=== PATIENT | male | born 1955 | race Caucasian/White ===

== ENCOUNTER 2016-04-19 10:22 | Inpatient (IN) | payer BC ==
[2016-04-19] MEDS ORDERED: ASPIRIN 81 MG CHEW PO STA (10:38)
[2016-04-19] MEDS ORDERED: NITROGLYCERIN OINT 1 INCH/GM PACKET TOPICAL STA (10:38)
--- NOTE | 2016-04-19 10:41 | ED ---
General Adult HPI - General Chief complaint: Chest Pain Stated complaint: CHEST PAIN Time Seen by Provider: 04/19/16 10:32 Source: patient Mode of arrival: wheelchair Limitations: no limitations - Related Data Home Medications Medication Instructions Recorded Confirmed Allopurinol [Zyloprim] 100 mg PO DAILY 04/19/16 04/19/16 Atorvastatin [Lipitor] 10 mg PO DAILY 04/19/16 04/19/16 Colchicine 0.6 mg PO DAILY PRN 04/19/16 04/19/16 Hydrochlorothiazide [Hydrodiuril] 25 mg PO DAILY 04/19/16 04/19/16 Insulin Aspart [NovoLOG] 20 unit SQ TID-W/MEALS 04/19/16 04/19/16 Insulin Glargine,Hum.rec.anlog 50 unit SQ BID 04/19/16 04/19/16 [Lantus Solostar] Metoprolol Succinate (ER) [Toprol 50 mg PO DAILY 04/19/16 04/19/16 Xl] amLODIPine BESYLATE/BENAZEPRIL 1 cap PO DAILY 04/19/16 04/19/16 [amLODIPine BESYLATE/BENAZEPRIL 5-40 mg] oxyCODONE-APAP 10-325MG [Percocet 1 tab PO BID 04/19/16 04/19/16 10-325 mg] Allergies Allergy/AdvReac Type Severity Reaction Status Date / Time No Known Allergies Allergy Unverified 04/19/16 10:53 Review of Systems ROS Statement: Those systems with pertinent positive or pertinent negative responses have been documented in the HPI. ROS Other: All systems not noted in ROS Statement are negative. Past Medical History Past Medical History: Diabetes Mellitus, Hyperlipidemia, Hypertension History of Any Multi-Drug Resistant Organisms: None Reported Past Surgical History: Orthopedic Surgery Past Psychological History: No Psychological Hx Reported Smoking Status: Never smoker Past Alcohol Use History: None Reported Past Drug Use History: None Reported General Exam Limitations: no limitations Course Vital Signs 04/19/16 04/19/16 04/19/16 10:37 11:10 11:45 Temperature 97.2 F L Pulse Rate 76 67 66 Respiratory 16 18 20 Rate Blood Pressure 168/108 181/90 161/84 O2 Sat by Pulse 93 L 99 99 Oximetry - Reevaluation(s) Reevaluation #1: 04/19/16 10:47 Previous EKG dated 04/12/2009 reviewed. 04/19/16 11:13 Dr. Levin has reviewed the EKGs and is coming to evaluate the patient. EKG Findings - EKG Comments: EKG Findings:: Normal sinus rhythm 75. MN 160. QRS 94. QT 406. QTc 453. Normal axis. Septal Q waves with mild ST change. Medical Decision Making - Medical Decision Making Patient does have elevated troponin. Patient was reevaluated and remained symptom-free. Patient was seen emergency Department by Dr. Levin and will be taken to the Air Breaker Operator. IV heparin has been started. Admission orders written. Case was also discussed in detail with Dr. low, who will admit for Dr. Barrios. - Lab Data Result diagrams: 04/19/16 11:00 04/19/16 11:00 Lab Results 04/19/16 04/19/16 04/19/16 Range/Units 11:00 11:00 11:00 WBC 7.7 (3.8-10.6) k/uL RBC 5.56 (4.30-5.90) m/uL Hgb 17.8 H (13.0-17.5) gm/dL Hct 53.9 H (39.0-53.0) % MCV 97.0 (80.0-100.0) fL MCH 31.9 (25.0-35.0) pg MCHC 32.9 (31.0-37.0) g/dL RDW 13.5 (11.5-15.5) % Plt Count 220 (150-450) k/uL Neutrophils % 68 % Lymphocytes % 20 % Monocytes % 8 % Eosinophils % 2 % Basophils % 1 % Neutrophils # 5.2 (1.3-7.7) k/uL Lymphocytes # 1.5 (1.0-4.8) k/uL Monocytes # 0.6 (0-1.0) k/uL Eosinophils # 0.1 (0-0.7) k/uL Basophils # 0.1 (0-0.2) k/uL PT (9.0-12.0) sec INR (<1.1) APTT (22.0-30.0) sec D-Dimer (<0.60) mg/L FEU Sodium 139 (137-145) mmol/L Potassium 5.0 (3.5-5.1) mmol/L Chloride 103 (98-107) mmol/L Carbon Dioxide 25 (22-30) mmol/L Anion Gap 11 mmol/L BUN 32 H (9-20) mg/dL Creatinine 1.43 H (0.66-1.25) mg/dL Est GFR (MDRD) Af Amer >60 (>60 ml/min/1.73 sqM) Est GFR (MDRD) Non-Af 51 (>60 ml/min/1.73 sqM) Glucose 250 H (74-99) mg/dL Calcium 9.8 (8.4-10.2) mg/dL Magnesium 1.9 (1.6-2.3) mg/dL Total Bilirubin 0.6 (0.2-1.3) mg/dL AST 42 (17-59) U/L ALT 60 (21-72) U/L Alkaline Phosphatase 119 (38-126) U/L Total Creatine Kinase 230 H (55-170) U/L CK-MB (CK-2) 5.9 H* (0.0-2.4) ng/mL CK-MB (CK-2) Rel Index 2.6 Troponin I 2.110 H* (0.000-0.034) ng/mL Total Protein 7.6 (6.3-8.2) g/dL Albumin 4.0 (3.5-5.0) g/dL 04/19/16 Range/Units 11:00 WBC (3.8-10.6) k/uL RBC (4.30-5.90) m/uL Hgb (13.0-17.5) gm/dL Hct (39.0-53.0) % MCV (80.0-100.0) fL MCH (25.0-35.0) pg MCHC (31.0-37.0) g/dL RDW (11.5-15.5) % Plt Count (150-450) k/uL Neutrophils % % Lymphocytes % % Monocytes % % Eosinophils % % Basophils % % Neutrophils # (1.3-7.7) k/uL Lymphocytes # (1.0-4.8) k/uL Monocytes # (0-1.0) k/uL Eosinophils # (0-0.7) k/uL Basophils # (0-0.2) k/uL PT 10.3 (9.0-12.0) sec INR 1.0 (<1.1) APTT 23.6 (22.0-30.0) sec D-Dimer 0.35 (<0.60) mg/L FEU Sodium (137-145) mmol/L Potassium (3.5-5.1) mmol/L Chloride (98-107) mmol/L Carbon Dioxide (22-30) mmol/L Anion Gap mmol/L BUN (9-20) mg/dL Creatinine (0.66-1.25) mg/dL Est GFR (MDRD) Af Amer (>60 ml/min/1.73 sqM) Est GFR (MDRD) Non-Af (>60 ml/min/1.73 sqM) Glucose (74-99) mg/dL Calcium (8.4-10.2) mg/dL Magnesium (1.6-2.3) mg/dL Total Bilirubin (0.2-1.3) mg/dL AST (17-59) U/L ALT (21-72) U/L Alkaline Phosphatase (38-126) U/L Total Creatine Kinase (55-170) U/L CK-MB (CK-2) (0.0-2.4) ng/mL CK-MB (CK-2) Rel Index Troponin I (0.000-0.034) ng/mL Total Protein (6.3-8.2) g/dL Albumin (3.5-5.0) g/dL - Radiology Data Radiology results: image reviewed (Chest x-ray shows borderline cardiomegaly. No acute process.) Critical Care Time Critical Care Time: Yes Total Critical Care Time: 34 Disposition Clinical Impression: NSTEMI (non-ST elevated myocardial infarction) Disposition: ADMITTED IP TO THIS [facility] Condition: Serious
[2016-04-19 11:17] LABS: Basophils # (A) 0.1 k/uL (0-0.2); Basophils % (A) 1 %; CH 33.1; CHCM 34.3; Eosinophils # (A) 0.1 k/uL (0-0.7); Eosinophils % (A) 2 %; HCT 53.9 % (39.0-53.0); HDW 2.37; HGB 17.8 gm/dL (13.0-17.5); Luc # (Auto) 0.12; Luc % (Auto) 2; Lymphocytes # (A) 1.5 k/uL (1.0-4.8); Lymphocytes % (A) 20 %; MCH 31.9 pg (25.0-35.0); MCHC 32.9 g/dL (31.0-37.0); Mean Platelet Volume 7.7; Monocytes # (A) 0.6 k/uL (0-1.0); Monocytes % (A) 8 %; Neutrophils # (A) 5.2 k/uL (1.3-7.7); Neutrophils % (A) 68 %; RBC 5.56 m/uL (4.30-5.90); RDW 13.5 % (11.5-15.5); WBC 7.7 k/uL (3.8-10.6); WBC (Perox) 8.18
[2016-04-19 11:30] LABS: ALT 60 U/L (21-72); AST 42 U/L (17-59); Alkaline Phosphatase 119 U/L (38-126); Anion Gap 11 mmol/L; Blood Urea Nitrogen 32 mg/dL (9-20); Calcium 9.8 mg/dL (8.4-10.2); Carbon Dioxide 25 mmol/L (22-30); Chloride 103 mmol/L (98-107); Glucose 250 mg/dL (74-99); Magnesium 1.9 mg/dL (1.6-2.3); Non-African American GFR(MDRD) 51 (>60 ml/min/1.73 sqM); Sodium 139 mmol/L (137-145); Total Bilirubin 0.6 mg/dL (0.2-1.3); Total Protein 7.6 g/dL (6.3-8.2)
[2016-04-19 11:32] LABS: Partial Thromboplastin Time 23.6 sec (22.0-30.0); Prothrombin Time 10.3 sec (9.0-12.0)
[2016-04-19] MEDS ORDERED: HEPARIN SODIUM,PORCINE 5,000 UNIT/ML 1 ML VIAL IV ONE (11:39)
[2016-04-19] MEDS ORDERED: HEPARIN SODIUM,PORCINE 5,000 UNIT/ML 1 ML VIAL IV PRN (11:39)
[2016-04-19] MEDS ORDERED: HEPARIN SODIUM,PORCINE/D5W PMX 25,000 UNIT in DEXTROSE/WATER 1 500ML.BAG IV SCH (11:45)
--- NOTE | 2016-04-19 11:50 | XR ---
EXAMINATION TYPE: XR chest 1V portable DATE OF EXAM: 04/19/2016 11:45 AM HISTORY: Epigastric pain. REFERENCE: Previous study dated 04/11/2009. FINDINGS: The lungs are overinflated. Heart size is upper limits of normal. The lungs are clear. Pleu ral spaces are clear. IMPRESSION: 1. COPD. 2. BORDERLINE CARDIOMEGALY.
[2016-04-19 12:08] LABS: Creatine Kinase MB 5.9 ng/mL (0.0-2.4); Troponin I 2.11 ng/mL (0.000-0.034)
[2016-04-19] MEDS ORDERED: NITROGLYCERIN SL TABS 0.4 MG TAB SUBLINGUAL PRN ×2 (12:41→14:13)
[2016-04-19] MEDS ORDERED: IV FLUID CONTINUATION 1,000 ML IV ONE (12:50)
[2016-04-19] MEDS ORDERED: HEPARIN SODIUM 1,000 UNIT/ML VIAL ONE (12:56)
[2016-04-19] MEDS ORDERED: VERAPAMIL 2.5 MG/ML 2 ML AMP ONE (12:56)
[2016-04-19] MEDS ORDERED: SODIUM CHLORIDE 0.9% (PF) 10 ML VIAL ONE ×2 (12:56→13:36)
[2016-04-19] MEDS ORDERED: MIDAZOLAM 2 MG/2 ML VIAL ONE ×2 (12:56→13:42)
[2016-04-19] MEDS ORDERED: MIDAZOLAM 2 MG/2 ML VIAL IV ONE ×2 (13:14→13:43)
[2016-04-19] MEDS ORDERED: LIDOCAINE 2% INJ 20 MG/ML SQ ONE (13:16)
[2016-04-19] MEDS ORDERED: BIVALIRUDIN BOLUS 250 MG/50 ML IV ONE (13:35)
[2016-04-19] MEDS ORDERED: niCARdipine 25 MG/10 ML VIAL ONE (13:36)
[2016-04-19] MEDS ORDERED: BIVALIRUDIN 250 MG in SODIUM CHLORIDE 0.9% 50 ML IV ONE ×2 (13:37→13:56)
[2016-04-19] MEDS: NITROGLYCERIN 1000MCG/10ML SYRINGE INTRACORON ONE ×2 (13:44→13:52)
[2016-04-19] MEDS ORDERED: HYDROmorphone 2 MG/ML 1 ML SYRINGE ONE (14:05)
[2016-04-19] MEDS ORDERED: TICAGRELOR 90 MG TAB ONE (14:05)
[2016-04-19] MEDS ORDERED: HYDROmorphone 2 MG/ML 1 ML SYRINGE IV ONE (14:07)
[2016-04-19] MEDS ORDERED: TICAGRELOR 90 MG TAB PO ONE (14:09)
[2016-04-19] MEDS ORDERED: hydrALAZINE HCL 20 MG/ML 1 ML VIAL ONE (14:11)
[2016-04-19] MEDS ORDERED: RX INFO: IV CONTRAST WAS GIVEN 1 EACH MISC MISCELLANE PRN (14:13)
[2016-04-19] MEDS ORDERED: ZOLPIDEM 5 MG TAB PO PRN (14:13)
[2016-04-19] MEDS ORDERED: MAG HYDROX/AL HYDROX/SIMETH 30 ML CUP PO PRN (14:13)
[2016-04-19] MEDS ORDERED: hydrALAZINE HCL 20 MG/ML 1 ML VIAL IV ONE (14:14)
[2016-04-19] MEDS ORDERED: IODIXANOL 320 MG/ML 100 ML INTRAARTER ONE (14:21)
[2016-04-19 17:21] LABS: Glucose,Whole Blood 247 mg/dL (75-99)
[2016-04-19] MEDS ORDERED: NITROGLYCERIN OINT 1 INCH/GM PACKET TOPICAL SCH (18:00)
[2016-04-19 18:49] LABS: Creatine Kinase MB 4.3 ng/mL (0.0-2.4); Troponin I 4.87 ng/mL (0.000-0.034)
[2016-04-19] MEDS ORDERED: HYDROmorphone 1 MG/ML 1 ML SYRINGE IVP PRN (19:00)
[2016-04-19] MEDS ORDERED: oxyCODONE-APAP 10-325MG 1 EACH TAB PO PRN (19:17)
[2016-04-19 20:02] LABS: Hemoglobin A1C 9.9 % (4.2-6.1)
[2016-04-19] MEDS: INSULIN GLARGINE 100 UNIT/ML 10 ML VIAL SQ SCH (20:22)
[2016-04-19] MEDS: ATORVASTATIN 80 MG TAB PO SCH (20:23)
[2016-04-19] MEDS: LISINOPRIL 20 MG TAB PO SCH (20:24)
[2016-04-19] MEDS: amLODIPine 5 MG TAB PO SCH (20:24)
[2016-04-19] MEDS: METOPROLOL TARTRATE 25 MG TAB PO SCH (20:30)
[2016-04-19] MEDS ORDERED: oxyCODONE-APAP 10-325MG 1 EACH TAB PO SCH (21:00)
[2016-04-19] MEDS ORDERED: METOPROLOL SUCCINATE (ER) 25 MG TAB.ER.24H PO SCH (21:00)
[2016-04-19 21:25] LABS: Glucose,Whole Blood 262 mg/dL (75-99)
[2016-04-19] MEDS: INSULIN LISPRO (humaLOG) 300 UNIT/3 ML VIAL SQ SCH ×2 (21:56→21:57)
[2016-04-19 23:08] LABS: Troponin I 4.36 ng/mL (0.000-0.034)
--- NOTE | 2016-04-20 01:04 | P.CRDCN ---
History of Present Illness Consult date: 04/19/16 Chief complaint: Chest discomfort History of present illness: This is a pleasant 60-year-old gentleman with a past medical history significant for obesity, hypertension, dyslipidemia, and diabetes, presented to the hospital complaining of chest discomfort. He was in his usual state of health until about a week ago when he started experiencing intermittent episodes of chest discomfort as a pressure across the chest without any associated symptoms of shortness of breath, dizziness or lightheadedness, nausea or vomiting, or sweating. He clearly states that the discomfort is worse with exertion and better with a resting. The patient is not aware of any prior history of coronary artery disease and never seen a bi tester in the past. He has extensive past medical history as described above. The EKG showed sinus rhythm with ST changes consistent with ischemia in the anteroseptal leads. In view of that I recommended proceeding with a heart catheterization and possible percutaneous coronary intervention Past Medical History Past Medical History: Diabetes Mellitus, Hyperlipidemia, Hypertension, Sleep Apnea/CPAP/BIPAP History of Any Multi-Drug Resistant Organisms: None Reported Past Surgical History: Orthopedic Surgery Past Psychological History: No Psychological Hx Reported Smoking Status: Never smoker Past Alcohol Use History: None Reported Past Drug Use History: None Reported - Past Family History Father Family Medical History: Coronary Artery Disease (CAD), Diabetes Mellitus Mother Family Medical History: Coronary Artery Disease (CAD) Medications and Allergies Home Medications Medication Instructions Recorded Confirmed Type Allopurinol [Zyloprim] 100 mg PO DAILY 04/19/16 04/19/16 History Atorvastatin [Lipitor] 10 mg PO DAILY 04/19/16 04/19/16 History Colchicine 0.6 mg PO DAILY PRN 04/19/16 04/19/16 History Hydrochlorothiazide [Hydrodiuril] 25 mg PO DAILY 04/19/16 04/19/16 History Insulin Aspart [NovoLOG] 20 unit SQ TID-W/MEALS 04/19/16 04/19/16 History Insulin Glargine,Hum.rec.anlog 50 unit SQ BID 04/19/16 04/19/16 History [Lantus Solostar] Metoprolol Succinate (ER) [Toprol 50 mg PO DAILY 04/19/16 04/19/16 History Xl] amLODIPine BESYLATE/BENAZEPRIL 1 cap PO BID 04/19/16 04/19/16 History [amLODIPine BESYLATE/BENAZEPRIL 5-40 mg] oxyCODONE-APAP 10-325MG [Percocet 1 tab PO BID 04/19/16 04/19/16 History 10-325 mg] Allergies Allergy/AdvReac Type Severity Reaction Status Date / Time No Known Allergies Allergy Unverified 04/19/16 10:53 Physical Exam Vitals: Vital Signs Temp Pulse Pulse Resp BP BP BP 04/19/16 20:00 97.3 F L 88 16 184/94 04/19/16 17:58 69 04/19/16 16:58 69 136/83 04/19/16 15:58 63 175/85 04/19/16 15:30 98.2 F 61 18 146/86 04/19/16 15:15 64 18 146/86 04/19/16 15:00 98.2 F 64 18 154/91 04/19/16 14:45 98.1 F 56 L 18 146/96 04/19/16 14:30 98.1 F 56 L 18 146/96 04/19/16 13:08 97.0 F L 63 175/85 04/19/16 12:45 98.1 F 67 18 158/94 Pulse Ox 04/19/16 20:00 96 04/19/16 17:58 04/19/16 16:58 04/19/16 15:58 97 04/19/16 15:30 97 04/19/16 15:15 97 04/19/16 15:00 97 04/19/16 14:45 97 04/19/16 14:30 97 04/19/16 13:08 97 04/19/16 12:45 97 Intake and Output 04/19/16 04/19/16 04/20/16 14:59 22:59 06:59 Intake Total 907 032 6166 Balance 912 627 3254 Intake: IV 150 Oral 222 1000 Other: Voiding Method Toilet Urinal # Voids 1 3 - Constitutional General appearance: no acute distress - Respiratory Respiratory: bilateral: CTA - Cardiovascular Rhythm: regular Heart sounds: normal: S1, S2 Results 04/19/16 11:00 04/19/16 11:00 Cardiac Enzymes 04/19/16 04/19/16 Range/Units 17:38 22:13 CK-MB (CK-2) 4.3 H* 4.0 H* (0.0-2.4) ng/mL Troponin I 4.870 H* 4.360 H* (0.000-0.034) ng/mL Current Medications Generic Name Dose Route Start Last Admin Trade Name Freq PRN Reason Stop Dose Admin Al Hydroxide/Mg Hydroxide 30 ml 04/19/16 14:13 Maalox PO Q4HR PRN Heartburn Allopurinol 100 mg 04/20/16 09:00 Zyloprim PO DAILY [facility] Amlodipine Besylate 5 mg 04/19/16 19:00 04/19/16 20:24 Norvasc PO 5 mg DAILY [facility] Administration Aspirin 81 mg 04/20/16 09:00 Aspirin PO DAILY [facility] Atorvastatin Calcium 80 mg 04/19/16 21:00 04/19/16 20:23 Lipitor PO Not Given HS [facility] Colchicine 0.6 mg 04/20/16 09:00 Colcrys PO DAILY PRN GOUT Hydrochlorothiazide 25 mg 04/20/16 09:00 Hydrodiuril PO DAILY [facility] Hydromorphone HCl 0.5 mg 04/19/16 19:00 04/19/16 19:12 Dilaudid IVP 0.5 mg Q6HR PRN Administration pain 6-10 Insulin Glargine 50 unit 04/19/16 21:00 04/19/16 20:22 Lantus SQ 50 unit BID [facility] Administration Insulin Human Lispro 20 unit 04/19/16 19:00 04/19/16 21:56 Humalog SQ 20 unit TID-W/MEALS [facility] Administration Insulin Human Lispro 0 unit 04/19/16 21:00 04/19/16 21:57 Humalog SQ 6 unit ACHS [facility] Administration Protocol Lisinopril 80 mg 04/19/16 19:00 04/19/16 20:24 Zestril PO 80 mg DAILY [facility] Administration Metoprolol Tartrate 25 mg 04/19/16 21:00 04/19/16 20:30 Lopressor PO 25 mg BID [facility] Administration Miscellaneous Information 1 each 04/19/16 14:13 Rx Info: Iv Contrast Was Given MISCELLANE 04/21/16 14:13 DAILY PRN Per Protocol Nitroglycerin 0.4 mg 04/19/16 14:13 Nitrostat SUBLINGUAL Q5M PRN Chest Pain Oxycodone/Acetaminophen 1 each 04/19/16 19:17 Percocet 10-325 PO BID PRN pain 1-5 Sodium Chloride 10 ml 04/19/16 21:00 04/19/16 20:23 Saline Flush IV 10 ml BID [facility] Administration Ticagrelor 90 mg 04/20/16 09:00 Brilinta PO BID [facility] Zolpidem Tartrate 5 mg 04/19/16 14:13 Ambien PO HS PRN Insomnia Intake and Output 04/19/16 04/19/16 04/20/16 14:59 22:59 06:59 Intake Total 024 330 4526 Balance 807 401 4083 Intake: IV 150 Oral 222 1000 Other: Voiding Method Toilet Urinal # Voids 1 3 Assessment and Plan Plan: Assessment #1 acute coronary syndrome #2 multiple risk factors for CAD Plan #1 proceeding with a heart catheterization #2 follow-up with the patient
[2016-04-20 06:48] LABS: Glucose,Whole Blood 147 mg/dL (75-99)
[2016-04-20] MEDS: INSULIN LISPRO (humaLOG) 300 UNIT/3 ML VIAL SQ SCH ×7 (07:07→22:48)
[2016-04-20 07:08] LABS: Basophils % (A) 0 %; CH 32.7; CHCM 33.6; Eosinophils # (A) 0.1 k/uL (0-0.7); Eosinophils % (A) 1 %; HCT 51.3 % (39.0-53.0); HDW 2.33; HGB 16.9 gm/dL (13.0-17.5); Luc # (Auto) 0.18; Luc % (Auto) 2; Lymphocytes # (A) 1.9 k/uL (1.0-4.8); Lymphocytes % (A) 25 %; MCH 32.2 pg (25.0-35.0); MCHC 32.9 g/dL (31.0-37.0); MCV 97.7 fL (80.0-100.0); Mean Platelet Volume 6.9; Monocytes # (A) 0.7 k/uL (0-1.0); Monocytes % (A) 8 %; Neutrophils % (A) 63 %; RBC 5.25 m/uL (4.30-5.90); RDW 13.8 % (11.5-15.5); WBC 7.9 k/uL (3.8-10.6); WBC (Perox) 7.77
[2016-04-20 07:45] LABS: Cholesterol 188 mg/dL (<200); HDL Cholesterol 34 mg/dL (40-60); Non-African American GFR(MDRD) 51 (>60 ml/min/1.73 sqM); Triglycerides 267 mg/dL (<150)
[2016-04-20] MEDS: HYDROCHLOROTHIAZIDE 25 MG TAB PO SCH (08:15)
[2016-04-20] MEDS: ALLOPURINOL 100 MG TAB PO SCH (08:15)
[2016-04-20] MEDS: ASPIRIN 81 MG CHEW PO SCH (08:16)
[2016-04-20] MEDS: amLODIPine 5 MG TAB PO SCH (08:16)
[2016-04-20] MEDS: LISINOPRIL 20 MG TAB PO SCH (08:17)
[2016-04-20] MEDS: METOPROLOL TARTRATE 25 MG TAB PO SCH ×2 (08:18→20:28)
[2016-04-20] MEDS: TICAGRELOR 90 MG TAB PO SCH ×2 (08:19→20:29)
[2016-04-20] MEDS: INSULIN GLARGINE 100 UNIT/ML 10 ML VIAL SQ SCH ×2 (08:24→20:27)
[2016-04-20] MEDS ORDERED: LISINOPRIL 10 MG TAB PO SCH (09:00)
[2016-04-20] MEDS ORDERED: COLCHICINE 0.6 MG TAB PO PRN (09:00)
[2016-04-20] MEDS ORDERED: ATORVASTATIN 10 MG TAB PO SCH (09:00)
[2016-04-20] MEDS ORDERED: ASPIRIN 325 MG TAB PO SCH (09:00)
--- NOTE | 2016-04-20 09:05 | ECHOF ---
Referral Reason:Post ASD/PFO Insertion MEASUREMENTS -------- HEIGHT: 182.9 cm WEIGHT: 143.8 kg BP: IVSd: 1.8 cm (0.6 - 1.1) LVIDd: 3.8 cm (3.9 - 5.3) LVPWd: 2.2 cm (0.6 - 1.1) IVSs: 2.4 cm LVIDs: 2.1 cm LVPWs: 2.0 cm Ao Diam: 3.0 cm (2.0 - 3.7) AV Cusp: 1.9 cm (1.5 - 2.6) LA Diam: 3.4 cm (2.7 - 3.8) MV EXCURSION: 16.312 mm (> 18.000) MV EF SLOPE: 53 mm/s (70 - 150) EPSS: 0.9 cm MV E Rm: 0.92 m/s MV DecT: 210 ms MV A Rm: 0.88 m/s MV E/A Ratio: 1.04 RAP: 5.00 mmHg RVSP: 9.13 mmHg FINDINGS -------- Sinus rhythm. This was a technically good study. There is severe concentric left ventricular hypertrophy. Overall left ventricular systolic function is mild-moderately impaired with, an EF between 40 - 45 %. Mid inferior LV wall motion is hypokinetic. Anterseptal Hypokinesis Anterior is hypokinetic The right ventricle is normal in size and function. The left atrium is normal in size. The right atrium is normal in size. The aortic valve is trileaflet, and appears structurally normal. No aortic stenosis or regurgitation. The mitral valve leaflets are mildly thickened. There is trace mitral regurgitation. Trace tricuspid regurgitation present. The right ventricular systolic pressure, as measured by Doppler, is 9.13mmHg. Pulmonic valve appears structurally normal. The pericardium is normal. CONCLUSIONS -------- 1. Sinus rhythm. 2. The right atrium is normal in size. 3. The aortic valve is trileaflet, and appears structurally normal. No aortic stenosis or regurgitation. 4. The mitral valve leaflets are mildly thickened. 5. There is trace mitral regurgitation. 6. Trace tricuspid regurgitation present. 7. The right ventricular systolic pressure, as measured by Doppler, is 9.13mmHg. 8. Pulmonic valve appears structurally normal. 9. The pericardium is normal. 10. This was a technically good study. 11. There is severe concentric left ventricular hypertrophy. 12. Overall left ventricular systolic function is mild-moderately impaired with, an EF between 40 - 45 %. 13. Mid inferior LV wall motion is hypokinetic. 14. Anterseptal Hypokinesis 15. Anterior is hypokinetic 16. The right ventricle is normal in size and function. 17. The left atrium is normal in size. LABORATORY CLERK: Shelley Willson RDCS
--- NOTE | 2016-04-20 10:48 | CC ---
DATE OF SERVICE: 04/19/2016 PERFORMING PHYSICIAN: Nadeem Levin MD, automation machine operator. PROCEDURE PERFORMED: 1. Selective right and left coronary angiogram. 2. Successful stenting of ostial/proximal left anterior descending artery using 3.5 x 18 mm Xience drug eluting stent, which was post dilated using 4.0 mm noncompliant balloon with a good angiographic result. INDICATION: This is a pleasant 60-year-old gentleman with a past medical history significant for obesity, diabetes, hypertension, and dyslipidemia, who presented to the emergency room complaining of chest discomfort and underwent an EKG which showed ST changes in the anterior leads consistent with ischemia. The decision was made toward emergent heart catheterization. APPROACH: Right common femoral artery. COMPLICATIONS: None. LEVEL OF SEDATION: Moderate. PROCEDURE DESCRIPTION: After obtaining an informed consent, the patient was brought to the cardiac laborer/key man. The right common femoral artery was cannulated using micropuncture technique. The micropuncture wire passed easily, then I placed 6 Chinese sheath in the right common femoral artery. Subsequently, I did selective right and left coronary angiogram using JR4 and JL4 catheters. At that point, I decided to intervene on the left anterior descending artery. Please see a separate paragraph for that. SELECTIVE CORONARY ANGIOGRAM: 1. The right coronary artery is a moderate to large-caliber vessel and nondominant vessel. The right coronary artery appeared to be angiographically normal. 2. The left main is angiographically normal and bifurcates into the left circumflex and left anterior descending artery. 3. Left circumflex is a large-caliber vessel and it is a dominant vessel. The proximal left circumflex appeared to have mild disease only. The mid left circumflex appeared to have mild disease only as well and gives rise into the first and second obtuse marginal branches. The first obtuse marginal branch appeared to have mild disease only in the ostium. The second obtuse marginal branch appeared to have severe disease in the ostium and proximal portion seems to be in the range of 70% to 80%. The left circumflex distally just by the bifurcation of PDA and PLV branches has another lesion seems to be in the range of 70%. 4. Left anterior descending artery, the ostial LAD has critical lesion appeared to be in the range of 99%. The mid LAD appeared to have another lesion in the range of 70% to 80%. The LAD distally appeared to have mild disease only. The LAD gives rises into multiple small diagonal branches. PCI OF THE LAD: Anticoagulation was initiated using Angiomax. Subsequently, I took JL4 guiding catheter and the left main was engaged. Subsequently, I took 2 wires. The first wire was run-through wire and that wire was used to wire the left circumflex and the second wire was whisper wire, which was used to wire the left anterior descending artery. After that, I did PTCA ballooning of the ostial left anterior descending artery using 2.5 x 12 mm balloon, which was inflated under 12 atmospheres for 20 seconds. Subsequently, I did deploy 3.5 x 18 mm Xience drug-eluting stent in the ostial and proximal left anterior descending artery, where the stent was positioned under fluoroscopy guidance, then it was deployed under its nominal pressure. After that, I did post dilate that stent using 4.0 mm balloon which was inflated inside the stent under 18 atmospheres for 20 seconds. The following angiogram showed a good angiographic result without perforation and without dissection with CLINTON-3 flow. CONCLUSION: 1. Acute coronary syndrome. 2. Critical disease involving the ostial and proximal left anterior descending artery. 3. Severe disease involving the mid left anterior descending artery. 4. Severe disease involving the left circumflex coronary artery. PLAN: 1. Dual antiplatelet therapy. 2. PCI of the LAD and left circumflex over the next few days. 3. Follow up with the patient.
--- NOTE | 2016-04-20 10:54 | PCN ---
DATE OF PROCEDURE: ADDENDUM Add to procedure performed: PROCEDURE PERFORMED: Intravascular ultrasound (IVUS) of the left anterior descending artery.
--- NOTE | 2016-04-20 10:59 | P.PN ---
Subjective Principal diagnosis: Non-Q-wave DC This is a 60-year-old gentleman with history of hypertension, diabetes , hyperlipidemia, obesity, who presented to the hospital with non-Q-wave myocardial infarction. He was taken to the cardiac catheterization lab yesterday by Dr. Hitchcock and underwent successful stenting of the ostial/proximal LAD. Patient still has significant disease in the mid LAD, as well as the circumflex. He will undergo staged angioplasty of these vessels during this admission. This morning the patient was seen and examined, denies any chest pain or difficulty in breathing. EKG shows normal sinus rhythm with anterior ST -T wave changes. Echocardiogram with Doppler study was performed which revealed an ejection fraction of 40-45% with inferior anterior septal hypokinesia. Blood pressure this morning with a weight over 60, heart rate 70s. CBC normal. Creatinine this morning 1.4. Objective - Vital Signs Vital signs: Vital Signs Temp 98.1 F 04/20/16 08:00 Pulse 75 04/20/16 08:00 Resp 18 04/20/16 08:00 BP 108/65 04/20/16 08:00 Pulse Ox 94 L 04/20/16 08:00 Intake & Output 04/19/16 04/20/16 04/20/16 18:59 06:59 18:59 Intake Total 372 1000 Balance 372 1000 Weight 140 kg Intake: IV 150 Oral 222 1000 Other: Voiding Method Toilet Toilet Urinal Urinal # Voids 1 3 1 - Exam PHYSICAL EXAMINATION: HEENT: Head is atraumatic, normocephalic. Pupils equal, round. Neck is supple. There is no elevated jugular venous pressure. HEART EXAMINATION: Heart S1, S2 normal. No murmur or gallop heard. CHEST EXAMINATION: Lungs are clear to auscultation and precussion. No chest wall tenderness is noted on palpation or with deep breathing. ABDOMEN: Soft, nontender. Bowel sounds are heard. No organomegaly noted. Right groin soft, no evidence of any hematoma. EXTREMITIES: 2+ peripheral pulses with no evidence of peripheral edema and no calf tenderness noted. NEUROLOGIC patient is awake, alert and oriented -3. . - Labs CBC & Chem 7: 04/20/16 06:52 04/20/16 06:48 Labs: Abnormal Lab Results - Last 24 Hours (Table) 04/19/16 04/19/16 04/19/16 Range/Units 16:00 17:09 17:38 Creatinine (0.66-1.25) mg/dL POC Glucose (mg/dL) 247 H (75-99) mg/dL Hemoglobin A1c 9.9 H (4.2-6.1) % Total Creatine Kinase 180 H (55-170) U/L CK-MB (CK-2) 4.3 H* (0.0-2.4) ng/mL Troponin I 4.870 H* (0.000-0.034) ng/mL Triglycerides (<150) mg/dL LDL Cholesterol, Calc (0-99) mg/dL HDL Cholesterol (40-60) mg/dL 04/19/16 04/19/16 04/20/16 Range/Units 21:24 22:13 06:47 Creatinine (0.66-1.25) mg/dL POC Glucose (mg/dL) 262 H 147 H (75-99) mg/dL Hemoglobin A1c (4.2-6.1) % Total Creatine Kinase (55-170) U/L CK-MB (CK-2) 4.0 H* (0.0-2.4) ng/mL Troponin I 4.360 H* (0.000-0.034) ng/mL Triglycerides (<150) mg/dL LDL Cholesterol, Calc (0-99) mg/dL HDL Cholesterol (40-60) mg/dL 04/20/16 Range/Units 06:48 Creatinine 1.43 H (0.66-1.25) mg/dL POC Glucose (mg/dL) (75-99) mg/dL Hemoglobin A1c (4.2-6.1) % Total Creatine Kinase (55-170) U/L CK-MB (CK-2) (0.0-2.4) ng/mL Troponin I (0.000-0.034) ng/mL Triglycerides 267 H (<150) mg/dL LDL Cholesterol, Calc 101 H (0-99) mg/dL HDL Cholesterol 34 L (40-60) mg/dL Assessment and Plan (1) Presence of stent in LAD coronary artery Status: Acute (2) HTN (hypertension) Status: Acute (3) Hyperlipemia Status: Acute (4) Diabetes Status: Acute (5) NSTEMI (non-ST elevated myocardial infarction) Status: Acute Plan: Patient underwent angioplasty with stenting of the proximal LAD, still has residual stenosis in the mid LAD as well as circumflex artery. He will undergo staged angioplasty of those vessels during this admission. At this time we will continue current medications. DNP note has been reviewed, I agree with a documented findings and plan of care. Patient was seen and examined.
[2016-04-20 11:43] VITALS: BMI 41.8
[2016-04-20 12:44] LABS: Glucose,Whole Blood 194 mg/dL (75-99)
--- NOTE | 2016-04-20 15:06 | HP ---
DATE OF ADMISSION: 04/19/2016 PRESENTING COMPLAINT: Chest pain. HISTORY OF PRESENTING COMPLAINT: This is a 60-year-old patient I saw yesterday on 04/19/16. The patient is followed by Dr. Lee. His chronic stable medical conditions include diabetes, hypertension, hyperlipidemia. The patient has had trouble with lipid-lowering agent including Crestor and Lipitor giving him aches and pains. The patient for 10 days has been having central chest pressure going up to his neck, feeling weak and tired and decided to come in for the same. There was no sweating. There was no dizziness. When patient presented to the ER, his troponin was 2.1 and patient was taken to the cardiac optical lab technician by Dr. Levin from cardiology. Patient did have successful stenting of the LAD and a drug eluting stent was placed. There ( ) lesions present. The patient's is at the bedside. REVIEW OF SYSTEMS: CONSTITUTIONAL: Tired. HEENT: None. RESPIRATORY: None. CARDIOVASCULAR: As above. GASTROINTESTINAL: None. GENITOURINARY: None. MUSCULOSKELETAL: None. DERMATOLOGIC: None. HEMATOLOGIC: None. LYMPHATIC: None. PSYCHIATRY: None. NEUROLOGICAL: None. Past medical history of diabetes, hypertension, hyperlipidemia. PAST SURGICAL HISTORY: ( ) surgery. SOCIAL HISTORY: No smoking, alcohol occasionally. Patient is a arc welder by trade. . Family history of coronary artery disease, diabetes. HOME MEDICATIONS: 1. Amlodipine benazepril 5/40 one tablet p.o. b.i.d. 2. NovoLog 20 units subcutaneously t.i.d. 3. Colchicine 0.6 mg daily p.r.n. 4. Lantus 50 units subcutaneously b.i.d. 5. Allopurinol 100 mg p.o. daily. 6. Percocet 10 one tablets b.i.d. 7. Toprol XL 50 mg a day. 8. Hydrochlorothiazide 25 mg a day. 9. Lipitor 10 mg a day. ALLERGIES: None. ON EXAMINATION: VITAL SIGNS ON PRESENTATION: Temperature 97.2, pulse 76, respiration 16, blood pressure 168/108, pulse ox 93% on room air. GENERAL APPEARANCE: Tall well built, BMI of 41.9. Lying in bed, not in distress. EYES: Pupils equal. Conjunctivae normal. HEENT: External appearance of nose and ears normal. Oral cavity normal. NECK: JVD not raised. Mass not palpable. RESPIRATORY: Effort normal. Lungs are clear. CARDIOVASCULAR: First and second sounds normal. No edema. ABDOMEN: Soft, nontender. Liver and spleen not palpable. LYMPHATIC: No lymph node palpable in neck or axillae. PSYCHIATRY: Alert and oriented x3. Mood and affect normal. NEUROLOGICAL: Pupils equal. Cranial nerves grossly intact. Power and sensation grossly intact. INVESTIGATIONS: White count 7.7, hemoglobin 17.8. Potassium 5. BUN 32, creatinine 1.43. Troponin 2.1. EKG showing ST elevation in the anterior leads with some flipping of the T waves. ASSESSMENT: 1. Acute ST elevation myocardial infarction in the anterior wall with successful angioplasty to LAD with a drug eluting stent done emergently. 2. Essential hypertension, uncontrolled. 3. Obesity, body mass index of 41.9. 4. Diabetes mellitus type 2, chronically on insulin. 5. Hyperlipidemia. Patient had trouble using statins in the past, causing muscle aches and pains. 6. Abnormal renal function, suspect chronic kidney disease from diabetic nephropathy and hypertensive nephrosclerosis. We will follow electrolytes. Care was discussed with the patient and at the bedside. Questions were answered. Accu-Cheks will be closely followed.
[2016-04-20] MEDS ORDERED: ATORVASTATIN 80 MG TAB PO STA (15:37)
[2016-04-20] MEDS ORDERED: ALPRAZolam 0.25 MG TAB PO PRN (15:37)
[2016-04-20] MEDS ORDERED: SODIUM CHLORIDE 0.9% 1,000 ML in EMPTY BAG 1 BAG IV ONE (15:37)
[2016-04-20 17:13] LABS: Glucose,Whole Blood 159 mg/dL (75-99)
[2016-04-20] MEDS: ATORVASTATIN 80 MG TAB PO SCH (20:27)
[2016-04-20 20:58] LABS: Glucose,Whole Blood 177 mg/dL (75-99)
[2016-04-21 06:20] LABS: Basophils % (A) 1 %; CH 32.4; CHCM 32.9; Eosinophils # (A) 0.2 k/uL (0-0.7); Eosinophils % (A) 2 %; HCT 57.2 % (39.0-53.0); HDW 2.35; HGB 18.4 gm/dL (13.0-17.5); Luc # (Auto) 0.23; Luc % (Auto) 2; Lymphocytes # (A) 2.8 k/uL (1.0-4.8); Lymphocytes % (A) 29 %; MCH 31.8 pg (25.0-35.0); MCHC 32.1 g/dL (31.0-37.0); MCV 98.8 fL (80.0-100.0); Mean Platelet Volume 6.7; Monocytes # (A) 0.6 k/uL (0-1.0); Monocytes % (A) 7 %; Neutrophils # (A) 5.6 k/uL (1.3-7.7); Neutrophils % (A) 59 %; RBC 5.79 m/uL (4.30-5.90); RDW 13.7 % (11.5-15.5); WBC 9.5 k/uL (3.8-10.6); WBC (Perox) 9.48
[2016-04-21 06:30] LABS: Glucose,Whole Blood 152 mg/dL (75-99)
[2016-04-21 06:33] LABS: Calcium 9.5 mg/dL (8.4-10.2)
[2016-04-21] MEDS: INSULIN LISPRO (humaLOG) 300 UNIT/3 ML VIAL SQ SCH ×7 (06:34→20:17)
[2016-04-21] MEDS: ALLOPURINOL 100 MG TAB PO SCH (06:35)
[2016-04-21] MEDS: amLODIPine 5 MG TAB PO SCH (06:35)
[2016-04-21] MEDS: LISINOPRIL 20 MG TAB PO SCH (06:36)
[2016-04-21] MEDS: METOPROLOL TARTRATE 25 MG TAB PO SCH ×2 (06:36→20:17)
[2016-04-21] MEDS: ASPIRIN 81 MG CHEW PO SCH (06:36)
[2016-04-21] MEDS: TICAGRELOR 90 MG TAB PO SCH ×2 (06:37→20:17)
--- NOTE | 2016-04-21 10:56 | PN ---
DATE OF SERVICE: 04/20/2016 PRESENTING COMPLAINT: Acute AL. INTERVAL HISTORY: This patient presented with acute AL with stent of the LAD ( ) lesions in the same vessel. Awaiting for further intervention. The patient lying in the bed comfortable. No chest pain. Review of systems done for constitutional, cardiovascular, GI, pulmonary; relevant findings as above. Current medications are reviewed. On examination, temperature 97.8, pulse 62, respiration 18, blood pressure 140/74, pulse ox 94% on room air. GENERAL APPEARANCE: Lying in bed, comfortable. EYES: Pupils equal. Conjunctivae normal. NECK: JVD not raised. Mass not palpable. RESPIRATORY: Effort normal. Lungs are clear. CARDIOVASCULAR: First and second sounds normal. No edema. ABDOMEN: Soft, nontender. Liver and spleen not palpable. PSYCHIATRY: Alert and oriented x3. Mood and affect normal. INVESTIGATIONS: LDL 101. ASSESSMENT: 1. Acute ST elevation myocardial infarction in the anterior wall with ( ) left anterior descending coronary artery ( ) with more lesions. 2. Essential hypertension, uncontrolled on presentation. 3. Obesity, body mass index 41.9. 4. Diabetes mellitus type 2, chronically on insulin. 5. Hyperlipidemia, uncontrolled on presentation. 6. Chronic kidney disease stage II probably from diabetic nephropathy. PLAN: Continue current medication and treatment plan. Await further intervention as per cardiology.
[2016-04-21] MEDS ORDERED: IV FLUID CONTINUATION 1,000 ML IV ONE (11:00)
[2016-04-21] MEDS ORDERED: MIDAZOLAM 2 MG/2 ML VIAL ONE (11:09)
[2016-04-21] MEDS ORDERED: LIDOCAINE 2% INJ 20 MG/ML (20 ML MDV) ONE (11:09)
[2016-04-21] MEDS ORDERED: MIDAZOLAM 2 MG/2 ML VIAL IVP ONE (11:24)
[2016-04-21] MEDS ORDERED: LIDOCAINE 2% INJ 20 MG/ML SQ ONE (11:27)
[2016-04-21] MEDS ORDERED: SODIUM CHLORIDE 0.9% (PF) 10 ML VIAL ONE (11:28)
[2016-04-21] MEDS ORDERED: VERAPAMIL 2.5 MG/ML 2 ML AMP ONE (11:28)
[2016-04-21] MEDS: VERAPAMIL SYRINGE (5 MG/10 ML) INTRAARTER ONE ×2 (11:30→12:05)
[2016-04-21] MEDS ORDERED: BIVALIRUDIN BOLUS 250 MG/50 ML IV ONE (11:32)
[2016-04-21] MEDS ORDERED: BIVALIRUDIN 250 MG in SODIUM CHLORIDE 0.9% 50 ML IV ONE ×2 (11:34→11:56)
[2016-04-21] MEDS: NITROGLYCERIN 1000MCG/10ML SYRINGE INTRACORON ONE ×2 (11:56→12:03)
[2016-04-21] MEDS ORDERED: IODIXANOL 320 MG/ML 100 ML INTRAARTER ONE (12:07)
[2016-04-21] MEDS ORDERED: MAG HYDROX/AL HYDROX/SIMETH 30 ML CUP PO PRN (12:12)
[2016-04-21] MEDS ORDERED: ZOLPIDEM 5 MG TAB PO PRN (12:12)
[2016-04-21] MEDS ORDERED: RX INFO: IV CONTRAST WAS GIVEN 1 EACH MISC MISCELLANE PRN (12:12)
[2016-04-21] MEDS ORDERED: NITROGLYCERIN SL TABS 0.4 MG TAB SUBLINGUAL PRN (12:12)
[2016-04-21] MEDS ORDERED: SODIUM CHLORIDE 0.9% 1,000 ML IV SCH (12:15)
[2016-04-21] MEDS: INSULIN GLARGINE 100 UNIT/ML 10 ML VIAL SQ SCH ×2 (12:41→20:17)
[2016-04-21] MEDS: HYDROCHLOROTHIAZIDE 25 MG TAB PO SCH (12:44)
[2016-04-21 12:49] LABS: Glucose,Whole Blood 134 mg/dL (75-99)
[2016-04-21 17:23] LABS: Glucose,Whole Blood 184 mg/dL (75-99)
[2016-04-21] MEDS: ATORVASTATIN 80 MG TAB PO SCH (20:17)
[2016-04-21 20:18] LABS: Glucose,Whole Blood 169 mg/dL (75-99)
[2016-04-22 05:54] LABS: Glucose,Whole Blood 119 mg/dL (75-99)
[2016-04-22] MEDS: INSULIN LISPRO (humaLOG) 300 UNIT/3 ML VIAL SQ SCH ×4 (06:07→12:42)
[2016-04-22 06:17] LABS: Basophils % (A) 0 %; CH 32.3; CHCM 32.6; Eosinophils # (A) 0.2 k/uL (0-0.7); Eosinophils % (A) 2 %; HCT 52.2 % (39.0-53.0); HDW 2.34; Luc # (Auto) 0.12; Luc % (Auto) 2; Lymphocytes # (A) 1.7 k/uL (1.0-4.8); Lymphocytes % (A) 21 %; MCH 32.5 pg (25.0-35.0); MCHC 32.6 g/dL (31.0-37.0); MCV 99.6 fL (80.0-100.0); Mean Platelet Volume 6.9; Monocytes # (A) 0.6 k/uL (0-1.0); Monocytes % (A) 7 %; Neutrophils # (A) 5.3 k/uL (1.3-7.7); Neutrophils % (A) 67 %; RBC 5.24 m/uL (4.30-5.90); RDW 13.8 % (11.5-15.5); WBC 7.9 k/uL (3.8-10.6); WBC (Perox) 7.87
[2016-04-22 06:25] LABS: Calcium 9.3 mg/dL (8.4-10.2); Potassium 4.7 mmol/L (3.5-5.1)
[2016-04-22] MEDS ORDERED: LISINOPRIL 20 MG TAB PO SCH (09:00)
[2016-04-22] MEDS: ALLOPURINOL 100 MG TAB PO SCH (09:24)
[2016-04-22] MEDS: amLODIPine 5 MG TAB PO SCH (09:24)
[2016-04-22] MEDS: HYDROCHLOROTHIAZIDE 25 MG TAB PO SCH (09:25)
[2016-04-22] MEDS: ASPIRIN 81 MG CHEW PO SCH (09:25)
[2016-04-22] MEDS: METOPROLOL TARTRATE 25 MG TAB PO SCH (09:25)
[2016-04-22] MEDS: TICAGRELOR 90 MG TAB PO SCH (09:26)
[2016-04-22 09:35] VITALS: RESP 18
--- NOTE | 2016-04-22 09:43 | PTCA ---
DATE OF SERVICE: 04/21/2016 Performing physician: Nadeem Levin M.D. Insights Strategist. PROCEDURE PERFORMED: Successful stenting of the mid left anterior descending artery using 3.0 x 18 mm Xience LUCRETIA which was post dilated using 3.25 mm NC balloon with a good angiographic results. INDICATION: This is a pleasant 70-year-old gentleman who presented to the hospital 2 days ago with acute coronary syndrome and underwent a heart catheterization which showed critical disease involving the proximal ostial and proximal LAD and severe disease involving the mid LAD. He underwent successful stenting of the ostial and proximal LAD and was brought today to undergo stenting of the mid LAD. He also was found to have a lesion involving a medium-size left circumflex coronary artery which will be addressed later. COMPLICATIONS: None. Approach: Right radial artery. Level of sedation: Moderate. PROCEDURE DESCRIPTION: After obtaining informed consent, the patient was brought to the cardiac dairy and food laboratory assistant. Right radial artery was cannulated using micropuncture technique. The micropuncture wire passed easily. Then I placed 6 [place] sheath in the right radial artery. Subsequently, a gave the patient 2 mg of verapamil IA. After that, anticoagulation was initiated using Angiomax. Subsequently, I took JL 3.5 guiding catheter, and the left main was engaged. A whisper wire was used to wire the left anterior descending artery: I did PTCA below using 2.0 x 12 mm balloon, which was inflated under 14 atmospheres for 20 seconds. Then I deployed 3.0 x 18 mm Xience LUCRETIA, where the stent was positioned under fluoroscopy guidance and it was deployed under 14 atmospheres for 20 seconds. I postdilated using 3.25 mm NC balloon, which was inflated under 18 atmospheres for 30 seconds. The following angiogram showed an excellent angiographic results. The procedure was completed without any complication. Postprocedure management: 1. Dual antiplatelet therapy. 2. Risk factor modification. 3. The patient will be scheduled to undergo myocardial perfusion imaging as an outpatient to assess for ischemia the lateral wall.
--- NOTE | 2016-04-22 09:48 | LTR ---
April 21, 2016 Dr. Lee RE: Michael Bruner Dear Javier, Mr. Bruner underwent successful stenting of the mid left anterior descending artery with a good angiographic result and without any complication. As you remember, he presented to the hospital 2 days ago with acute anterior ST elevation myocardial infarction and underwent a heart catheterization which showed critical ostial LAD and severe mid LAD. The ostial LAD was stented at that time and I brought him today to undergo stenting of the mid LAD. The 2 procedures went very well with a good angiographic results and without any complication. Thank you again for allowing us to participate in his care. Sincerely, ROB CROWE MD
[2016-04-22] MEDS: INSULIN GLARGINE 100 UNIT/ML 10 ML VIAL SQ SCH (09:49)
[2016-04-22] MEDS ORDERED: amLODIPine 10 MG TAB PO SCH (09:53)
--- NOTE | 2016-04-22 09:54 | P.NPCON ---
History of Present Illness - Reason for Consult acute renal failure - History of Present Illness Reason for consultation: Acute kidney injury History of present illness: Patient is a 60-year-old male seen in renal consultation for acute kidney injury. Unclear as to what his baseline renal function is. His creatinine was 1.4 on admission and is up to 1.8 today. Patient presented with chest pain and was subsequently diagnosed with acute coronary syndrome and taken for cardiac catheterization on April 20 which revealed disease in the LAD and underwent one stent placement. He subsequently went for another cardiac catheterization on April 21 and received another stent to the LAD. Currently resting in bed. Denies any chest pain or shortness of breath. Admits to good urine output. Patient states he does have history of chronic kidney disease due to Bactrim which was diagnosed several years ago. He denies being on dialysis in the past. Denies use of NSAIDs at home. No vomiting or diarrhea. No other complaints at this time. Vital signs are stable. General: The patient appeared well nourished and normally developed. HEENT: Head exam is unremarkable. Neck is without jugular venous distension. LUNGS: Lungs are clear to auscultation and percussion. Breath sounds decreased. HEART: Rate and Rhythm are regular. First and second heart sounds normal. No murmurs, rubs or gallops. ABDOMEN: Abdominal exam reveals normal bowel sounds. Non-tender and non- distended. No evidence of peritonitis. EXTREMITITES: No clubbing, cyanosis, or edema. Past Medical History Past Medical History: Diabetes Mellitus, Hyperlipidemia, Hypertension, Sleep Apnea/CPAP/BIPAP History of Any Multi-Drug Resistant Organisms: None Reported Past Surgical History: Orthopedic Surgery Past Psychological History: No Psychological Hx Reported Smoking Status: Never smoker Past Alcohol Use History: None Reported Past Drug Use History: None Reported - Past Family History Father Family Medical History: Coronary Artery Disease (CAD), Diabetes Mellitus Mother Family Medical History: Coronary Artery Disease (CAD) Medications and Allergies Home Medications Medication Instructions Recorded Confirmed Type Allopurinol [Zyloprim] 100 mg PO DAILY 04/19/16 04/19/16 History Atorvastatin [Lipitor] 10 mg PO DAILY 04/19/16 04/19/16 History Colchicine 0.6 mg PO DAILY PRN 04/19/16 04/19/16 History Hydrochlorothiazide [Hydrodiuril] 25 mg PO DAILY 04/19/16 04/19/16 History Insulin Aspart [NovoLOG] 20 unit SQ TID-W/MEALS 04/19/16 04/19/16 History Insulin Glargine,Hum.rec.anlog 50 unit SQ BID 04/19/16 04/19/16 History [Lantus Solostar] Metoprolol Succinate (ER) [Toprol 50 mg PO DAILY 04/19/16 04/19/16 History Xl] amLODIPine BESYLATE/BENAZEPRIL 1 cap PO BID 04/19/16 04/19/16 History [amLODIPine BESYLATE/BENAZEPRIL 5-40 mg] oxyCODONE-APAP 10-325MG [Percocet 1 tab PO BID 04/19/16 04/19/16 History 10-325 mg] Allergies Allergy/AdvReac Type Severity Reaction Status Date / Time No Known Allergies Allergy Unverified 04/19/16 10:53 Physical Exam Vitals: Vital Signs Temp Pulse Pulse Resp BP BP Pulse Ox 04/22/16 09:20 97.7 F 79 79 18 170/94 94 L 04/22/16 04:00 97.3 F L 76 16 139/76 94 L 04/22/16 00:00 97.1 F L 62 16 148/71 96 04/21/16 20:00 98.2 F 72 16 133/69 95 04/21/16 17:00 78 16 126/73 96 04/21/16 15:57 74 16 125/71 95 04/21/16 14:57 76 16 122/67 95 04/21/16 13:57 78 126/69 95 04/21/16 13:27 69 17 121/70 95 04/21/16 12:57 69 16 129/67 96 04/21/16 12:42 119/75 95 04/21/16 12:27 124/70 96 04/21/16 12:12 16 128/74 97 Intake and Output 04/21/16 04/22/16 04/22/16 22:59 06:59 14:59 Intake Total 800 318 Output Total 600 Balance 200 318 Intake: IV 200 200 0.9 @140mls/hr 200 200 Oral 600 118 Output: Urine 600 Other: Voiding Method Toilet Toilet Toilet Urinal Urinal Urinal Weight 137.8 kg Results - Lab Results Most recent lab results Calcium 9.3 mg/dL (8.4-10.2) 04/22/16 05:33 Magnesium 1.9 mg/dL (1.6-2.3) 04/19/16 11:00 04/22/16 05:33 04/22/16 05:33 Assessment and Plan Plan: Assessment: #1. Nonoliguric acute kidney injury secondary to ATN secondary to contrast- induced nephropathy. Creatinine up to 1.8 today. #2. Chronic kidney disease. Unclear as to what his baseline renal function is. Etiology is likely diabetic kidney disease. #3. Acute coronary syndrome status post cardiac catheterization on April 20 and April 21 with 2 stents placed to the LAD. #4. Diabetes mellitus. #5. Hypertension with chronic kidney disease. Plan: Fluids have been discontinued. Avoid nephrotoxic agents and hypotensive episodes. Discontinue lisinopril for now in view of worsening renal function. I will increase dose of amlodipine to 10 mg daily. Continue to monitor for contrast-induced nephropathy. Repeat electrolytes in the morning. Check urinalysis and a renal ultrasound. Thank you for the consultation. I will continue to follow the patient with you during his hospital stay.
--- NOTE | 2016-04-22 11:16 | PN ---
DATE OF SERVICE: 04/21/2016 PRESENTING COMPLAINT: Chest pain. INTERVAL HISTORY: The patient with acute CA had initial stent of the LAD, was taken back to the OR today for another stent to LAD. Lying in bed, comfortable. No further chest pain. Breathing is stable, did tolerate his diet. Had at wrist access, radial artery access for the cardiac cath. Review of systems done for constitutional, cardiovascular, GI, pulmonary; relevant finding as above. Current medications reviewed. On examination, temperature 97.3, pulse 78, respirations 16, blood pressure 127/73, pulse ox 96% on room air. GENERAL: Lying in bed, comfortable. EYES: Pupils equal, conjunctivae normal. NECK: JVD not raised. Mass not palpable. Respiratory effort normal. Lungs are clear. CARDIOVASCULAR: First and second sounds normal, no edema. ABDOMEN: Soft, nontender. Liver and spleen not palpable. PSYCHIATRY: Alert and oriented x3. Mood and affect normal. INVESTIGATIONS: White count 9.5. Potassium 5.0, BUN 27, creatinine 1.60. ASSESSMENT: 1. Acute ST elevation myocardial infarction in the anterior wall with intervention of the left anterior descending artery and a second approach done today. 2. Essential hypertension, uncontrolled on presentation. 3. Obesity, body mass index of 41.9. 4. Diabetes mellitus type 2, chronically on insulin. 5. Hyperlipidemia. 6. Chronic kidney disease stage II, probably from diabetic nephropathy, present on admission. PLAN: Given cardiac dye and renal function, will repeat patient's renal function tomorrow and also get a Nephrology opinion to follow down the road.
[2016-04-22 11:45] LABS: Glucose,Whole Blood 105 mg/dL (75-99)
[2016-04-22 12:48] VITALS: BP 155/80; PULSE 66; TEMP 97.8
[2016-04-22 13:04] LABS: Appearance,Urine Clear (Clear); Bilirubin,Urine Negative (Negative); Glucose,Urine (UA) Negative (Negative); Ketones,Urine Negative (Negative); Leukocyte Esterase,Urine Negative (Negative); Mucus,Urine Rare /hpf; Nitrite,Urine Negative (Negative); PH, Urine 5.5 (5.0-8.0); Particle Count 391; Protein,Urine 1+ (Negative); Specific Gravity,Urine 1.006 (1.001-1.035); UA Billing (MACRO vs. MICRO) MICRO; Urobilinogen,Urine <2.0 mg/dL (<2.0); WBC,Urine <1 /hpf (0-5)
--- NOTE | 2016-04-22 14:06 | P.PN ---
Subjective Principal diagnosis: Non-Q-wave [place] This is a 60-year-old gentleman with history of hypertension, diabetes , hyperlipidemia, obesity, who presented to the hospital with non-Q-wave myocardial infarction. He was taken to the cardiac catheterization lab yesterday by Dr. Hitchcock and underwent successful stenting of the ostial/proximal LAD. Yesterday the patient was taken to the cardiac catheterization lab where he underwent successful stenting of the mid LAD. He does have residual stenosis in the circumflex which will be taken care of at a later date. Patient was seen and examined this morning, denies any chest pain or difficulty in breathing. EKG shows normal sinus rhythm with no changes from post-PCI. Objective - Vital Signs Vital signs: Vital Signs Temp 97.8 F 04/22/16 11:30 Pulse 66 04/22/16 11:30 Resp 18 04/22/16 11:30 BP 155/80 04/22/16 11:30 Pulse Ox 96 04/22/16 11:30 Intake & Output 04/21/16 04/22/16 04/22/16 18:59 06:59 18:59 Intake Total 301 800 554 Output Total 600 725 Balance -299 800 -171 Weight 137.8 kg Intake: IV 201 200 200 0.9 @140mls/hr 200 200 Oral 100 600 354 Output: Urine 600 725 Other: Voiding Method Toilet Toilet Toilet Urinal Urinal Urinal - Exam PHYSICAL EXAMINATION: HEENT: Head is atraumatic, normocephalic. Pupils equal, round. Neck is supple. There is no elevated jugular venous pressure. HEART EXAMINATION: Heart S1, S2 normal. No murmur or gallop heard. CHEST EXAMINATION: Lungs are clear to auscultation and precussion. No chest wall tenderness is noted on palpation or with deep breathing. ABDOMEN: Soft, nontender. Bowel sounds are heard. No organomegaly noted. Right groin soft, no evidence of any hematoma. Right radial site clean and dry , good distal pulse. EXTREMITIES: 2+ peripheral pulses with no evidence of peripheral edema and no calf tenderness noted. NEUROLOGIC patient is awake, alert and oriented -3. . - Labs CBC & Chem 7: 04/22/16 05:33 04/22/16 05:33 Labs: Abnormal Lab Results - Last 24 Hours (Table) 04/21/16 04/21/1604/22/17 Range/Units 17:06 20:16 05:33 BUN 31 H (9-20) mg/dL Creatinine 1.80 H (0.66-1.25) mg/dL Glucose 119 H (74-99) mg/dL POC Glucose (mg/dL) 184 H 169 H (75-99) mg/dL Urine Protein (Negative) Urine Mucus (None) /hpf 04/22/16 04/22/16 04/22/16 Range/Units 05:47 11:44 12:30 BUN (9-20) mg/dL Creatinine (0.66-1.25) mg/dL Glucose (74-99) mg/dL POC Glucose (mg/dL) 119 H 105 H (75-99) mg/dL Urine Protein 1+ H (Negative) Urine Mucus Rare H (None) /hpf Assessment and Plan (1) Presence of stent in LAD coronary artery Status: Acute (2) HTN (hypertension) Status: Acute (3) Hyperlipemia Status: Acute (4) Diabetes Status: Acute (5) NSTEMI (non-ST elevated myocardial infarction) Status: Acute Plan: Patient underwent angioplasty with stenting of the proximal LAD, and yesterday was taken back to the cathead operator where he underwent angioplasty and stenting of the mid LAD. Patient does still have residual stenosis in the circumflex. This will be performed at a later date. Creatinine today is 1.8. Patient was seen in consultation by nephrology. He has followed with nephrology in the past as an outpatient as well, and he is quite adamant to be discharged home today. He was seen on rounds today by Dr. Alberts and told that he could go home later today to follow-up with Dr. Hitchcock in the office next week, he's also been instructed to keep his appointment which is ready scheduled with nephrology next week. We will check lytes BUN and creatinine on Friday and again one week following. Patient will be discharged home on aspirin 81 mg daily, Lipitor 80 mg daily, metoprolol tartrate 25 mg one tablet by mouth twice a day, Brilinta 90 mg daily, Norvasc 10 mg daily, and sublingual nitroglycerin as needed for chest pain. Patient is not currently on an QUINTEN inhibitor because of mildly abnormal renal function. This will be reevaluated as an outpatient as well. DNP note has been reviewed, I agree with a documented findings and plan of care. Patient was seen and examined.
--- NOTE | 2016-04-23 21:38 | DS ---
DATE OF ADMISSION: 04/19/2016 DATE OF DISCHARGE: 04/22/2016 FINAL DIAGNOSES: 1. Acute non-ST elevation myocardial infarction in the anterior wall with intervention to the left anterior descending artery. 2. Essential hypertension, uncontrolled on presentation. 3. Obesity, body mass index of 41.9. 4. Diabetes mellitus type 2, chronically on insulin. 5. Hyperlipidemia. 6. Chronic kidney disease, stage 2 from diabetic nephropathy, present on admission, 7. Acute renal failure/contrast nephropathy with creatinine going up by 0.4. CONSULTATIONS: Dr. Peñaloza from nephrology, Dr. Levin/Dr. Alberts from cardiology. HOSPITAL COURSE: This patient presented with acute ST elevation myocardial infarction. Patient had cardiac catheterization in 2 settings with stenting to the LAD with a drug-eluting stent and angioplasty. Patient is cardiac symptom free at the time of discharge, being up and about. Patient's creatinine did go from 1.43 presentation to 1.80 on the day of discharge. Patient's blood pressure is running on the high side, seen by Dr. Alberts, who okayed the patient to be discharged. Norvasc was added. Patient was seen by Dr. Peñaloza and repeat electrolytes will be done as an outpatient. On exam, lungs are clear. CARDIOVASCULAR: First and second sounds normal. DISCHARGE MEDICATIONS: 1. Allopurinol 100 mg a day. 2. Colchicine 0.6 mg p.o. daily p.r.n. 3. Hydrochlorothiazide 25 mg a day. 4. NovoLog 20 units subcu t.i.d. 5. Insulin Lantus 50 units subcu b.i.d. 6. Toprol-XL 50 mg a day. 7. Percocet 10, 1 tablet p.o. b.i.d. 8. Aspirin 81 mg a day. 9. Lipitor 80 mg p.o. q.h.s. 10. Lopressor 25 p.o. b.i.d. 11. Nitrostat 0.4 sublingual q.5 p.r.n. 12. Brilinta 90 mg p.o. b.i.d. 13. Norvasc 10 mg a day. Follow up with Dr. Lee on 04/27/2016. Follow up with Dr. Levin on 04/19/2016. Follow up with Dr. Peñaloza in 1 week. BMP in 3 days.
== END 2016-04-22 15:46 | disposition home or self-care (01) | DRG 246 ==
LOC: EC 10:22 → 6SEL 12:41
PROVIDERS: ADMIT Hospitalist; ATTEND Hospitalist
PROC: 027034Z Dilation of Coronary Artery, One Artery with Drug-eluting Intraluminal Device, Percutaneous Approach (ICD-10-PCS; principal; 2016-04-20)
PROC: B2111ZZ Fluoroscopy of Multiple Coronary Arteries using Low Osmolar Contrast (ICD-10-PCS; 2016-04-20)
DX: I21.4 Non-ST elevation (NSTEMI) myocardial infarction (principal); N17.0 Acute kidney failure with tubular necrosis; Z68.41 Body mass index [BMI] 40.0-44.9, adult; E11.22 Type 2 diabetes mellitus with diabetic chronic kidney disease; E11.21 Type 2 diabetes mellitus with diabetic nephropathy; I25.10 Atherosclerotic heart disease of native coronary artery without angina pectoris; E66.9 Obesity, unspecified; N14.1 Nephropathy induced by other drugs, medicaments and biological substances; I12.9 Hypertensive chronic kidney disease with stage 1 through stage 4 chronic kidney disease, or unspecified chronic kidney disease; T50.8X5A Adverse effect of diagnostic agents, initial encounter; E78.5 Hyperlipidemia, unspecified; N18.2 Chronic kidney disease, stage 2 (mild); G47.30 Sleep apnea, unspecified; Z79.4 Long term (current) use of insulin; Z79.891 Long term (current) use of opiate analgesic; Z79.899 Other long term (current) drug therapy; Y92.239 Unspecified place in hospital as the place of occurrence of the external cause; Z82.49 Family history of ischemic heart disease and other diseases of the circulatory system; Z83.3 Family history of diabetes mellitus
CPT/HCPCS: 36415; 71010; 80048; 80053; 80061; 81001; 82550; 82553; 82565; 83036; 83735; 84484; 85025; 85379; 85610; 85730; 93005; 93306; 93458

== ENCOUNTER 2017-05-04 09:19 | Inpatient (IN) | payer BC ==
[2017-05-04] MEDS ORDERED: NITROGLYCERIN SL TABS 0.4 MG TAB SUBLINGUAL STA (09:24)
[2017-05-04] MEDS ORDERED: HEPARIN SODIUM,PORCINE 5,000 UNIT/ML 1 ML VIAL IV STA (09:24)
[2017-05-04] MEDS ORDERED: NITROGLYCERIN-D5W PMX 50 MG in DEXTROSE/WATER 1 250ML.BAG IV STA (09:24)
[2017-05-04] MEDS ORDERED: ATORVASTATIN 80 MG TAB PO STA (09:25)
[2017-05-04] MEDS: MORPHINE SULFATE 2 MG/ML SYRINGE IVP STA ×2 (09:31→09:43)
--- NOTE | 2017-05-04 09:34 | ED ---
General Adult HPI - General Stated complaint: Chest Pain Time Seen by Provider: 05/04/17 09:19 Source: RN notes reviewed - History of Present Illness Initial comments: this is a 61-year-old male with a past medical history significant for coronary artery disease with a stent placement approximate one year ago. Patient also has diabetes hypertension high cholesterol. Patient was out shoveling today and started having significant chest pain he called EMS. Patient states became very short of breath and diaphoretic and the pain radiated to his left arm. Patient stated that during the week he's had a couple episodes but they eventually resolved and he did not call anyone. Patient states the nitroglycerin he took at home as well as by EMS did help his pain but the pain eventually comes back. Patient got an aspirin at home prior to EMS arriving. Patient denies any recent fever chills or cough patient denies abdominal pain patient denies any nausea vomiting diarrhea. Patient denies any headache patient denies numbness weakness. - Related Data Home Medications Medication Instructions Recorded Confirmed Colchicine 0.6 mg PO DAILY PRN 04/19/16 05/04/17 Hydrochlorothiazide [Hydrodiuril] 25 mg PO DAILY 04/19/16 05/04/17 Insulin Aspart [NovoLOG See Protocol SQ AC-TID 04/19/16 05/04/17 (formulary)] Insulin Glargine,Hum.rec.anlog 60 unit SQ HS 04/19/16 05/04/17 [Lantus Solostar] oxyCODONE-APAP 10-325MG [Percocet 1 tab PO TID PRN 04/19/16 05/04/17 10-325 mg] Allopurinol [Zyloprim] 300 mg PO DAILY 05/04/17 05/04/17 Aspirin EC [Ecotrin Low Dose] 81 mg PO DAILY 05/04/17 05/04/17 Metoprolol Succinate (ER) [Toprol 50 mg PO DAILY 05/04/17 05/04/17 Xl] Previous Rx's Medication Instructions Recorded Nitroglycerin Sl Tabs [Nitrostat] 0.4 mg SUBLINGUAL Q5M PRN #25 tab 04/22/16 amLODIPine [Norvasc] 10 mg PO DAILY #30 tab 04/22/16 Allergies Allergy/AdvReac Type Severity Reaction Status Date / Time No Known Allergies Allergy Verified 05/04/17 09:35 Review of Systems ROS Statement: Those systems with pertinent positive or pertinent negative responses have been documented in the HPI. ROS Other: All systems not noted in ROS Statement are negative. Past Medical History Past Medical History: Diabetes Mellitus, Hyperlipidemia, Hypertension, Sleep Apnea/CPAP/BIPAP History of Any Multi-Drug Resistant Organisms: None Reported Past Surgical History: Orthopedic Surgery Past Psychological History: No Psychological Hx Reported Smoking Status: Never smoker Past Alcohol Use History: None Reported Past Drug Use History: None Reported - Past Family History Father Family Medical History: Coronary Artery Disease (CAD), Diabetes Mellitus Mother Family Medical History: Coronary Artery Disease (CAD) General Exam - General Exam Comments Initial Comments: GENERAL: Patient is well-developed and well-nourished. Patient is nontoxic and well- hydrated and is in mild distress. ENT: Neck is soft and supple. No significant lymphadenopathy is noted. Oropharynx is clear. Moist mucous membranes. Neck has full range of motion without eliciting any pain. EYES: The sclera were anicteric and conjunctiva were pink and moist. Extraocular movements were intact and pupils were equal round and reactive to light. Eyelids were unremarkable. PULMONARY: Unlabored respirations. Good breath sounds bilaterally. No audible rales rhonchi or wheezing was noted. CARDIOVASCULAR: There is a regular rate and rhythm without any murmurs gallops or rubs. ABDOMEN: Soft and nontender with normal bowel sounds. No palpable organomegaly was noted. There is no palpable pulsatile mass. SKIN: Skin is clear with no lesions or rashes and otherwise unremarkable. NEUROLOGIC: Patient is alert and oriented x3. Cranial nerves II through XII are grossly intact. Motor and sensory are also intact. Normal speech, volume and content. Symmetrical smile. MUSCULOSKELETAL: Normal extremities with adequate strength and full range of motion. No lower extremity swelling or edema. No calf tenderness. LYMPHATICS: No significant lymphadenopathy is noted PSYCHIATRIC: Normal psychiatric evaluation. Normal interpersonal interactions appears functionally intact in deals appropriately with others. No signs of depression. No signs of anxiety. Course Vital Signs 05/04/17 05/04/17 05/04/17 09:22 09:30 09:35 Temperature 97.4 F L Pulse Rate 61 51 L 60 Respiratory 16 22 22 Rate Blood Pressure 146/95 131/79 139/84 O2 Sat by Pulse 97 98 100 Oximetry 05/04/17 09:44 Temperature Pulse Rate 60 Respiratory 28 H Rate Blood Pressure 120/78 O2 Sat by Pulse 97 Oximetry Medical Decision Making - Medical Decision Making EKG shows normal sinus rhythm at 62 bpm HI interval 178 QRSs 124 QT interval 398 QTC is 43. Patient's EKG shows ST segment elevation in the inferior leads and a little ST segment elevation in V6. Prior to the patient's arrival and EKG was transmitted I called a STEMI about 10 minutes prior to their arrival. I spoke with Dr. Solis. Dr. Solis came to the emergency department approximately 10 minutes after the patient arrived. I started the patient on heparin bolus I gave the patient nitroglycerin sublingualI also gave the patient 2 mg of morphine and started the patient on a nitroglycerin drip. Patient also received 80 mg Lipitor. Patient will be going to the catheterization lab Chest x-ray showed no acute abnormality. - Lab Data Result diagrams: 05/04/17 09:25 Lab Results 05/04/17 05/04/17 Range/Units 09:25 09:36 WBC 8.9 (3.8-10.6) k/uL RBC 5.23 (4.30-5.90) m/uL Hgb 17.0 (13.0-17.5) gm/dL Hct 51.6 (39.0-53.0) % MCV 98.6 (80.0-100.0) fL MCH 32.5 (25.0-35.0) pg MCHC 33.0 (31.0-37.0) g/dL RDW 14.7 (11.5-15.5) % Plt Count 242 (150-450) k/uL Neutrophils % 67 % Lymphocytes % 22 % Monocytes % 7 % Eosinophils % 1 % Basophils % 1 % Neutrophils # 6.0 (1.3-7.7) k/uL Lymphocytes # 1.9 (1.0-4.8) k/uL Monocytes # 0.6 (0-1.0) k/uL Eosinophils # 0.1 (0-0.7) k/uL Basophils # 0.1 (0-0.2) k/uL POC Glucose (mg/dL) 433 H (75-99) mg/dL POC Glu Explosive Ordnance Manager ID Yaquelin Chacon Critical Care Time Critical Care Time: Yes Total Critical Care Time: 35 Disposition Clinical Impression: ST elevation myocardial infarction (STEMI) Disposition: ADMITTED IP TO THIS HOSP Referrals: Best Lee DO [Primary Care Provider] - 1-2 days Time of Disposition: 09:33
[2017-05-04 09:39] LABS: Glucose,Whole Blood 433 mg/dL (75-99)
[2017-05-04 09:41] LABS: Basophils # (A) 0.1 k/uL (0-0.2); Basophils % (A) 1 %; Eosinophils # (A) 0.1 k/uL (0-0.7); Eosinophils % (A) 1 %; HCT 51.6 % (39.0-53.0); Lymphocytes # (A) 1.9 k/uL (1.0-4.8); Lymphocytes % (A) 22 %; MCH 32.5 pg (25.0-35.0); MCV 98.6 fL (80.0-100.0); Mean Platelet Volume 7.5; Monocytes # (A) 0.6 k/uL (0-1.0); Monocytes % (A) 7 %; Neutrophils % (A) 67 %; Platelet Count 242 k/uL (150-450); RBC 5.23 m/uL (4.30-5.90); RDW 14.7 % (11.5-15.5); WBC 8.9 k/uL (3.8-10.6)
[2017-05-04] MEDS ORDERED: INSULIN ASPART 100 UNIT/ML 1 ML 10 ML VIAL SQ STA (09:43)
[2017-05-04] MEDS ORDERED: LORazepam 2 MG/ML INJ IV STA (09:44)
[2017-05-04 09:48] LABS: Albumin 3.8 g/dL (3.5-5.0); Calcium 10.1 mg/dL (8.4-10.2); Magnesium 1.8 mg/dL (1.6-2.3); Total Bilirubin 0.5 mg/dL (0.2-1.3); Total Protein 7.2 g/dL (6.3-8.2)
[2017-05-04] MEDS ORDERED: LIDOCAINE 2% INJ 20 MG/ML (20 ML MDV) ONE ×2 (09:51→10:28)
[2017-05-04] MEDS ORDERED: VERAPAMIL 2.5 MG/ML 2 ML AMP ONE (09:53)
[2017-05-04 09:54] LABS: Partial Thromboplastin Time 21.3 sec (22.0-30.0); Prothrombin Time 9.8 sec (9.0-12.0)
--- NOTE | 2017-05-04 09:54 | XR ---
EXAMINATION TYPE: XR chest 1V portable DATE OF EXAM: 05/04/2017 HISTORY: chest pain. REFERENCE: Previous study dated 04/19/2016. FINDINGS: The entire chest is not included on this study. The lungs are overinflated. Heart size is upper limits of normal. The lungs are clear. Both CP angles are excluded from the study. IMPRESSION: LIMITED EXAMINATION DEMONSTRATING COPD AND BORDERLINE CARDIOMEGALY.
[2017-05-04] MEDS ORDERED: IV FLUID CONTINUATION 1,000 ML IV ONE (10:00)
[2017-05-04] MEDS ORDERED: SODIUM CHLORIDE 0.9% 500 ML IV ONE (10:00)
[2017-05-04] MEDS ORDERED: LIDOCAINE 2% INJ 20 MG/ML SQ ONE ×2 (10:08→10:34)
[2017-05-04] MEDS ORDERED: MIDAZOLAM 2 MG/2 ML VIAL ONE (10:09)
[2017-05-04] MEDS ORDERED: BIVALIRUDIN BOLUS 250 MG/50 ML IV ONE (10:12)
[2017-05-04 10:13] LABS: Creatine Kinase MB 1.5 ng/mL (0.0-2.4); Troponin I 0.016 ng/mL (0.000-0.034)
[2017-05-04] MEDS: VERAPAMIL SYRINGE (5 MG/10 ML) INTRAARTER ONE ×2 (10:13→11:31)
[2017-05-04] MEDS: MIDAZOLAM 2 MG/2 ML VIAL IV ONE ×2 (10:14→10:54)
[2017-05-04] MEDS ORDERED: BIVALIRUDIN 250 MG in SODIUM CHLORIDE 0.9% 50 ML IV ONE ×2 (10:14→10:38)
[2017-05-04] MEDS ORDERED: HEPARIN SODIUM 1,000 UN/ML (10ML VL) ONE (10:21)
[2017-05-04] MEDS ORDERED: HYDROmorphone 2 MG/ML 1 ML SYRINGE ONE (10:24)
[2017-05-04] MEDS ORDERED: HYDROmorphone 2 MG/ML 1 ML SYRINGE IV ONE (10:24)
[2017-05-04] MEDS ORDERED: METOPROLOL TARTRATE 5 MG/5 ML VIAL IVP ONE ×2 (10:28→10:30)
[2017-05-04] MEDS ORDERED: DEXTROSE 5% IN WATER 100 ML with AMIODARONE 150 MG IV ONE (10:36)
[2017-05-04] MEDS: AMIODARONE 450 MG in DEXTROSE 5% IN WATER 250 ML IV SCH ×4 (10:50→19:47)
[2017-05-04] MEDS ORDERED: FUROSEMIDE 10 MG/ML 4 ML VIAL ONE (11:06)
[2017-05-04] MEDS ORDERED: FUROSEMIDE 10 MG/ML 4 ML VIAL IV ONE (11:10)
[2017-05-04] MEDS ORDERED: TICAGRELOR 90 MG TAB ONE (11:22)
--- NOTE | 2017-05-04 11:22 | P.CRDCN ---
History of Present Illness Consult date: 05/04/17 History of present illness: This is a 61-year-old gentleman with history of chronic renal failure and also ischemic heart disease who underwent staged stenting of the proximal and mid LAD. Recently came to the hospital with complaints of chest pain. Apparently was shoveling snow before he started having chest pain. His EKG showed evidence of acute inferior wall WA. Patient is known to have significant disease in the circumflex and OM branch. His right coronary artery is nondominant. Patient is taken to the photographic laboratory technician. Dr. Hitchcock is going to do catheterization and intervention as needed. Patient chest pain at the time of my evaluation was 4 on a scale of 1-10. Patient has received heparin, Lipitor, nitroglycerin and aspirin Review of Systems Not obtained Past Medical History Past Medical History: Diabetes Mellitus, Hyperlipidemia, Hypertension, Sleep Apnea/CPAP/BIPAP Additional Past Medical History / Comment(s): CAD, recent stent placement of the LAD History of Any Multi-Drug Resistant Organisms: None Reported Past Surgical History: Orthopedic Surgery Past Psychological History: No Psychological Hx Reported Smoking Status: Never smoker Past Alcohol Use History: None Reported Past Drug Use History: None Reported - Past Family History Father Family Medical History: Coronary Artery Disease (CAD), Diabetes Mellitus Mother Family Medical History: Coronary Artery Disease (CAD) Medications and Allergies Home Medications Medication Instructions Recorded Confirmed Type Colchicine 0.6 mg PO DAILY PRN 04/19/16 05/04/17 History Hydrochlorothiazide [Hydrodiuril] 25 mg PO DAILY 04/19/16 05/04/17 History Insulin Aspart [NovoLOG See Protocol SQ AC-TID 04/19/16 05/04/17 History (formulary)] Insulin Glargine,Hum.rec.anlog 60 unit SQ HS 04/19/16 05/04/17 History [Lantus Solostar] oxyCODONE-APAP 10-325MG [Percocet 1 tab PO TID PRN 04/19/16 05/04/17 History 10-325 mg] Nitroglycerin Sl Tabs [Nitrostat] 0.4 mg SUBLINGUAL Q5M PRN #25 tab 04/22/1607/16 Rx amLODIPine [Norvasc] 10 mg PO DAILY #30 tab 04/22/16 05/04/17 Rx Allopurinol [Zyloprim] 300 mg PO DAILY 05/04/17 05/04/17 History Aspirin EC [Ecotrin Low Dose] 81 mg PO DAILY 05/04/17 05/04/17 History Metoprolol Succinate (ER) [Toprol 50 mg PO DAILY 05/04/17 05/04/17 History Xl] Allergies Allergy/AdvReac Type Severity Reaction Status Date / Time No Known Allergies Allergy Verified 05/04/17 09:35 Physical Exam Vitals: Vital Signs Temp Pulse Resp BP Pulse Ox 05/04/17 09:48 72 18 158/93 96 05/04/17 09:44 60 28 H 120/78 97 05/04/17 09:35 60 22 139/84 100 05/04/17 09:30 51 L 22 131/79 98 05/04/17 09:22 97.4 F L 61 16 146/95 97 Intake and Output 05/03/17 05/04/17 05/04/17 22:59 06:59 14:59 Intake Total 145 Balance 145 Intake: IV 145 Other: Weight 142.882 kg Patient Weight 05/05/17 06:59 Weight 142.882 kg GENERAL EXAM: Patient is alert and oriented and in moderate distress with pain HEENT: Normocephalic. Normal reaction of pupils, equal size, normal range of extraocular motion. No erythema or exudates in the throat. NECK: No masses, no nuchal rigidity. CHEST: No chest wall deformity. LUNGS: Equal air entry with no crackles or wheeze. HEART: S1 and S2 normal with no audible mumurs or gallops. Regular rhythm, f ABDOMEN: No hepatosplenomegaly, normal bowel sounds, no guarding or rigidity. SKIN: No rashes CENTRAL NERVOUS SYSTEM: No focal deficits. EXTREMITIES: No cyanosis, clubbing or edema. Results 05/04/17 09:25 05/04/17 09:25 Cardiac Enzymes 05/04/17 05/04/17 Range/Units 09:25 09:25 AST 32 (17-59) U/L CK-MB (CK-2) 1.5 (0.0-2.4) ng/mL Troponin I 0.016 (0.000-0.034) ng/mL Coagulation 05/04/17 Range/Units 09:25 PT 9.8 (9.0-12.0) sec APTT 21.3 L (22.0-30.0) sec CBC 05/04/17 Range/Units 09:25 WBC 8.9 (3.8-10.6) k/uL RBC 5.23 (4.30-5.90) m/uL Hgb 17.0 (13.0-17.5) gm/dL Hct 51.6 (39.0-53.0) % Plt Count 242 (150-450) k/uL Comprehensive Metabolic Panel 05/04/17 Range/Units 09:25 Sodium 135 L (137-145) mmol/L Potassium 5.0 (3.5-5.1) mmol/L Chloride 103 (98-107) mmol/L Carbon Dioxide 20 L (22-30) mmol/L BUN 34 H (9-20) mg/dL Creatinine 1.62 H (0.66-1.25) mg/dL Glucose 471 H* (74-99) mg/dL Calcium 10.1 (8.4-10.2) mg/dL AST 32 (17-59) U/L ALT 64 (21-72) U/L Alkaline Phosphatase 175 H (38-126) U/L Total Protein 7.2 (6.3-8.2) g/dL Albumin 3.8 (3.5-5.0) g/dL Current Medications Generic Name Dose Route Start Last Admin Trade Name Freq PRN Reason Stop Dose Admin Nitroglycerin/Dextrose 50 mg/ 250 mls @ 1.5 mls/hr 05/04/17 09:24 05/04/17 09 :32 IV Solution IV 05/05/17 09:23 5 mcg/min .Q24H STA 1.5 mls/hr Protocol Administration 5 MCG/MIN Amiodarone HCl 450 mg/ 250 mls @ 33.33 mls/hr 05/04/17 10:45 05/04/17 10:50 Dextrose/Water IV 05/05/17 10:40 0 mls .Q7H31M SHERELY Administration Protocol 1 MG/MIN Intake and Output 05/03/17 05/04/17 05/04/17 22:59 06:59 14:59 Intake Total 145 Balance 145 Intake: IV 145 Other: Weight 142.882 kg Patient Weight 05/05/17 06:59 Weight 142.882 kg 05/04/17 09:25 05/04/17 09:25 EKG Interpretations (text) Sinus rhythm with acute inferior wall WA Assessment and Plan (1) ST elevation myocardial infarction (STEMI) Current Visit: Yes Status: Acute Code(s): I21.3 - ST ELEVATION (STEMI) MYOCARDIAL INFARCTION OF [facility] SITE SNOMED Code(s): 269155051 (2) Diabetes Current Visit: No Status: Acute Code(s): E11.9 - TYPE 2 DIABETES MELLITUS WITHOUT COMPLICATIONS SNOMED Code(s): 66833080 (3) HTN (hypertension) Current Visit: No Status: Acute Code(s): I10 - ESSENTIAL (PRIMARY) HYPERTENSION SNOMED Code(s): 24872472 (4) Presence of stent in LAD coronary artery Current Visit: No Status: Acute Code(s): Z95.5 - PRESENCE OF CORONARY ANGIOPLASTY IMPLANT AND GRAFT SNOMED Code(s): 006606454825445 Plan: Dr. Hitchcock is going to proceed with Intervention As Needed.
[2017-05-04] MEDS ORDERED: TICAGRELOR 90 MG TAB PO ONE (11:24)
[2017-05-04] MEDS ORDERED: COLCHICINE 0.6 MG TAB PO PRN (11:39)
[2017-05-04] MEDS ORDERED: MAG HYDROX/AL HYDROX/SIMETH 30 ML CUP PO PRN (11:41)
[2017-05-04] MEDS ORDERED: ATROPINE SULFATE 0.1 MG/ML 10ML SYRINGE IV PRN (11:41)
[2017-05-04] MEDS ORDERED: ZOLPIDEM 5 MG TAB PO PRN (11:41)
[2017-05-04] MEDS ORDERED: RX INFO: IV CONTRAST WAS GIVEN 1 EACH MISC MISCELLANE PRN (11:41)
[2017-05-04] MEDS ORDERED: TIROFIBAN 12.5MG-250ML NS 250 ML IV ONE (11:42)
[2017-05-04] MEDS ORDERED: SODIUM CHLORIDE 0.9% 1,000 ML IV SCH (11:45)
[2017-05-04] MEDS ORDERED: IODIXANOL 320 MG/ML 100 ML INTRAARTER ONE (11:50)
--- NOTE | 2017-05-04 12:07 | LTR ---
May 04, [address] Lee: Mr. Michael Bruner presented to the emergency room at [facility] with chest discomfort and was diagnosed with acute inferior ST-elevation myocardial infarction. Mr. Bruner underwent successful stenting of both the left circumflex and LAD with good angiographic results and without any complication. Thank you for allowing me to participate in his care and please do not hesitate to call if you have any question or concern. MMODL / IJN: [id number] /
[2017-05-04 12:18] LABS: Glucose,Whole Blood 429 mg/dL (75-99)
--- NOTE | 2017-05-04 12:28 | CC ---
CARDIAC CATHETERIZATION REPORT DATE OF SERVICE: 05/04/17 PERFORMING PHYSICIAN: Nadeem Levin MD, beam builder. PROCEDURE PERFORMED: 1. Selective right and left coronary angiogram. 2. Left heart catheterization. 3. Intra-aortic balloon pump placement. 4. Successful stenting of both the left circumflex and LAD using kissing technique with a 3.5 x 16 for the left circumflex and 4 0 x 16 for the LAD with good angiographic results and without any complication. 5. Aspiration thrombectomy from the left main, left circumflex, and left anterior descending artery. INDICATION: This is a pleasant 61-year-old gentleman who is known to have coronary artery disease and prior stenting of the LAD, who presented to the hospital with chest discomfort and was found to have an acute inferior ST-elevation myocardial infarction. He was seen and evaluated by Dr. Solis who recommended proceeding with an emergent heart catheterization. APPROACH: 1. Right radial artery. 2. Right common femoral artery. 3. Left femoral common femoral artery. COMPLICATION: None. LEVEL OF SEDATION: Moderate with sedation length of 83 minutes. PROCEDURE DESCRIPTION: After obtaining informed consent, the patient was brought to the cardiac labor contract analyst. Initially the right radial artery was cannulated using micropuncture technique, the micropuncture wire passed easily. Then I placed a 6-Spanish sheath in the right radial artery. At that point, anticoagulation was initiated using Angiomax. I did give the patient 2 mg of verapamil IA as well. Subsequently I did selective right and left coronary angiogram using JR4 and JL3.5 catheters. After that, I did left heart catheterization without left ventriculography. At that point, we realized that the patient has a thrombus in the left main along with subtotally occluded left circumflex and critical in-stent restenosis of the LAD. We called the surgeon to come and evaluate the patient for open heart surgery, but the surgeon was about an hour and a half away and after discussing the case with him, we decided to pursue with percutaneous coronary intervention. SELECTIVE CORONARY ANGIOGRAM: 1. The right coronary artery is a small to medium caliber vessel and it is a nondominant vessel. It does have mild disease only. 2. The left main is a large left main with a thrombus in the left main. Otherwise, the left main does not have any atherosclerotic plaque. The left main bifurcates into the left circumflex and left anterior descending artery. 3. The left circumflex is a large caliber vessel and it is a dominant vessel. The ostial and proximal left circumflex are subtotally occluded with a large thrombus burden. The mid left circumflex appeared to have intermediate disease only unchanged compared to before and gives rise into a medium-sized obtuse marginal branch. The left circumflex distally was not well visualized. 4. The left anterior descending artery: The ostial and proximal LAD are stented with in-stent restenoses as well as in-stent thrombus. The in-stent restenosis was about 90%. The mid LAD has mild disease only. The LAD distally has mild disease only as well. The LAD gives rise into multiple small diagonal branches. HEMODYNAMICS: The left ventricular end-diastolic pressure was about 32 mmHg and no gradient was identified across the aortic valve. PCI OF THE LEFT CIRCUMFLEX AND LAD: After we decided to pursue with percutaneous coronary intervention, I decided to place an intra-aortic balloon pump. At that point, the left common femoral artery was cannulated using micropuncture technique, the micropuncture wire passed easily and then I placed the balloon pump sheath, which was 7.5-Spanish in the left common femoral artery. After that, I did place intra-aortic balloon pump under fluoroscopy guidance. Subsequently, the right common femoral artery was cannulated using micropuncture technique as well. The micropuncture wire passed easily, then I placed an 8-Spanish sheath in the right common femoral artery preparing for kissing technique. Subsequently, I did continue anticoagulation using Angiomax. At that point, I did engage the left main using JL4 8-Spanish guide. Both the left circumflex and LAD wired using a whisper wire. After that, I did aspiration thrombectomy from the left main, LAD, and left circumflex and I was able to aspirate significant amount of white thrombus. Subsequently I did do balloon angioplasty of both the left circumflex and LAD using 2.5 mm balloon. After that, I tried to advance a 3.5 x 16 mm Promus drug-eluting stent to the left circumflex, but the stent will not make the turn so I did wire the left circumflex using a brayan wire with a run-through wire. I tried again advancing the stent and I was unable but I was able to advance the stent using the run-through wire. Subsequently I did advance to the LAD 4 0 x 16 mm another Promus drug-eluting stent where both stents were again positioned under fluoroscopy guidance with multiple injection to assure the placement of both the stents. After that, both the stents were deployed using kissing technique for under 12 atmospheres for 30 seconds. The following angiogram showed good angiographic results. At that point, the procedure was completed without any complication. After that, I did pull the intra-aortic balloon pump out. The procedure was completed without any complication. CONCLUSION: 1. Acute inferior ST-elevation myocardial infarction. 2. Thrombus in the left main coronary artery. 3. Plaque rupture and large thrombus formation in the ostial and proximal left circumflex. 4. Critical in-stent restenosis of the ostial and proximal LAD. 5. Aspiration thrombectomy from the left main, LAD, and left circumflex. 6. Successful kissing stents of both the left circumflex and LAD as described above with adjunctive use of intra-aortic balloon pump. POSTPROCEDURE MANAGEMENT: 1. Dual anti-platelet therapy. 2. Risk factor modifications. 3. Follow up with the patient. MMODL / IJN: [id number] /
[2017-05-04 12:51] VITALS: BMI 42.7
[2017-05-04] MEDS ORDERED: INSULIN REGULAR 100 UNIT in SODIUM CHLORIDE 0.9% 100 ML IV SCH (14:00)
[2017-05-04] MEDS ORDERED: INSULIN REGULAR BOLUS (FROM DRIP BAG) IV PRN (14:00)
[2017-05-04] MEDS: hydrALAZINE HCL 20 MG/ML 1 ML VIAL IVP STA (14:43)
[2017-05-04] MEDS: ENALAPRILAT 1.25 MG/ML 1 ML VIAL IVP STA (14:44)
[2017-05-04] MEDS: NITROGLYCERIN SL TABS 0.4 MG TAB SUBLINGUAL PRN ×4 (14:49→21:17)
[2017-05-04 15:12] LABS: Glucose,Whole Blood 408 mg/dL (75-99)
[2017-05-04 15:29] LABS: Glucose,Whole Blood 405 mg/dL (75-99)
[2017-05-04 16:01] LABS: Glucose,Whole Blood 397 mg/dL (75-99)
[2017-05-04] MEDS ORDERED: ONDANSETRON 4 MG/2 ML VIAL IVP PRN (16:10)
[2017-05-04] MEDS ORDERED: ONDANSETRON 4 MG/2 ML VIAL ONE (16:15)
[2017-05-04 16:57] LABS: Glucose,Whole Blood 344 mg/dL (75-99)
[2017-05-04 18:09] LABS: Glucose,Whole Blood 334 mg/dL (75-99)
--- NOTE | 2017-05-04 19:19 | HP ---
HISTORY AND PHYSICAL DATE OF ADMISSION: 05/04/17 PRESENTING COMPLAINT: Chest pain. HISTORY OF PRESENTING COMPLAINT: This is a pleasant 61-year-old patient who was here in the hospital about a year ago. At that time, patient presented with acute IL, and had a stent placed to the LAD. The patient's other chronic stable medical conditions include hypertension, diabetes, hyperlipidemia, chronic kidney disease. Since about 4-5 weeks patient has been noticing some chest pain with exertion, but has been putting it off, which is getting better with rest. Earlier today the patient was shoveling and started having significant chest pressure going across the chest, became dizzy, lightheaded, pain going down the left arm, diaphoretic. Even earlier in the week and had some episodes. The patient presented to the ER, the patient was found to have an ST-elevation IL, taken to the cardiac laborer powerhouse by Dr. Levin. The patient underwent successful stenting of the left circumflex and LAD. Then was moved to the ICU. The patient's family is at the bedside. REVIEW OF SYSTEMS: Constitutional: Tired. HEENT none. Respiratory as above. Cardiovascular as above. Gastrointestinal none. none. Musculoskeletal none. Dermatological and hematologic, lymphatics none. Psychiatry none. Neurological none. PAST MEDICAL HISTORY: Diabetes mellitus type 2, hypertension, hyperlipidemia, chronic kidney disease, CAD, coronary artery disease with acute IL, stent to the LAD. PAST SURGICAL HISTORY: Cardiac cath with stent, right great toe bunionectomy, injury to the right leg from tree fell on him. SOCIAL HISTORY: No smoking. Alcohol occasionally. Patient is a fabrication welder by trade. . FAMILY HISTORY: Coronary artery disease and diabetes. HOME MEDICATIONS: 1. Percocet 10 1 tab t.i.d. p.r.n. 2. Norvasc 10 mg p.o. daily. 3. Nitrostat 0.4 sublingual q.5 p.r.n. 4. Toprol-XL 50 mg p.o. daily. 5. NovoLog 30 units subcu a.c. t.i.d. 6. Insulin Lantus 60 units subcu q.h.s. 7. Hydrochlorothiazide 25 units p.o. daily. 8. Colchicine 6.6 mg p.o. daily p.r.n. 9. Aspirin 81 mg p.o. daily. 10.Allopurinol 10 mg p.o. daily. ALLERGIES: None. PHYSICAL EXAMINATION: Temperature 98.4, pulse 81, respiration 20, blood pressure 123/80. GENERAL APPEARANCE: Well built BMI 42.8. Lying in bed, comfortable. Eyes pupils equal. Conjunctivae normal. HEENT: Oral cavity normal. Neck JVD not raised. Mass not palpable. Respiratory effort lungs are clear. Cardiovascular 1st and second sounds normal. No edema. ABDOMEN: Soft, nontender. Liver and spleen not palpable. Lymphatics: No lymph nodes palpable. PSYCHIATRY: Alert and oriented x3. Mood and affect normal. Neurological: Pupils equal. Cranial nerves grossly intact. Power and sensation grossly intact. INVESTIGATIONS: White count 8.9, hemoglobin 17, potassium 5, BUN 34, creatinine 1.62, glucose 471. EKG shows ST elevation in inferior leads. ASSESSMENT: 1. Acute inferior ST-elevation myocardial infarction with successful angioplasty stenting to the circumflex and the LAD. 2. Essential hypertension. 3. Obesity, morbid obesity BMI greater than 40. 4. Diabetes mellitus type 2, chronically on insulin. 5. Diabetes mellitus type 2. 6. Chronic kidney disease stage 3 from diabetic nephropathy and hypertensive nephrosclerosis. PLAN: Patient is currently on allopurinol, amiodarone drip, Norvasc, aspirin, Colchicine, insulin drip, Toprol-XL, Brilinta. Care was discussed with the patient and family at the bedside. Questions were answered. We will resume patient's Lantus tonight along with a scheduled Humalog. Copy Dr. Lee. MMJORGEL / ALVINN: [id number] /
[2017-05-04] MEDS ORDERED: INSULIN DETEMIR 100 UNIT/ML 10 ML VIAL SQ SCH (21:00)
[2017-05-04] MEDS: TICAGRELOR 90 MG TAB PO SCH (21:09)
[2017-05-04 21:10] LABS: Glucose,Whole Blood 406 mg/dL (75-99)
[2017-05-04] MEDS: oxyCODONE-APAP 10-325MG 1 EACH TAB PO PRN (21:40)
[2017-05-04] MEDS ORDERED: INSULIN REGULAR BOLUS (FROM DRIP BAG) IV ONE (22:56)
[2017-05-04 23:16] LABS: Hemoglobin A1C 11.3 % (4.0-6.0)
[2017-05-04 23:53] LABS: Glucose,Whole Blood 361 mg/dL (75-99)
[2017-05-04] MEDS: INSULIN REGULAR 100 UNIT in SODIUM CHLORIDE 0.9% 100 ML IV SCH (23:54)
[2017-05-05 00:59] LABS: Glucose,Whole Blood 322 mg/dL (75-99)
[2017-05-05 02:00] LABS: Glucose,Whole Blood 273 mg/dL (75-99)
[2017-05-05] MEDS: AMIODARONE 450 MG in DEXTROSE 5% IN WATER 250 ML IV SCH ×4 (02:20→11:13)
[2017-05-05 03:01] LABS: Glucose,Whole Blood 287 mg/dL (75-99)
[2017-05-05 04:11] LABS: Glucose,Whole Blood 216 mg/dL (75-99)
[2017-05-05 04:35] LABS: Basophils # (A) 0.1 k/uL (0-0.2); Basophils % (A) 1 %; Eosinophils % (A) 0 %; HCT 54.9 % (39.0-53.0); Lymphocytes # (A) 1.8 k/uL (1.0-4.8); Lymphocytes % (A) 12 %; MCH 31.3 pg (25.0-35.0); MCV 101.1 fL (80.0-100.0); Macrocytosis Slight; Mean Platelet Volume 6.9; Monocytes # (A) 0.9 k/uL (0-1.0); Monocytes % (A) 6 %; Neutrophils # (A) 11.6 k/uL (1.3-7.7); Neutrophils % (A) 79 %; Platelet Count 269 k/uL (150-450); RBC 5.43 m/uL (4.30-5.90); RDW 13.8 % (11.5-15.5); WBC 14.6 k/uL (3.8-10.6)
[2017-05-05 04:48] LABS: Calcium 9.7 mg/dL (8.4-10.2); Potassium 4.2 mmol/L (3.5-5.1)
[2017-05-05 04:57] LABS: Glucose,Whole Blood 199 mg/dL (75-99)
[2017-05-05 06:03] LABS: Glucose,Whole Blood 170 mg/dL (75-99)
[2017-05-05 07:01] LABS: Glucose,Whole Blood 145 mg/dL (75-99)
[2017-05-05] MEDS ORDERED: INSULIN ASPART 100 UNIT/ML 1 ML 10 ML VIAL SQ SCH (07:30)
[2017-05-05 08:03] LABS: Glucose,Whole Blood 145 mg/dL (75-99)
[2017-05-05] MEDS: ENALAPRILAT 1.25 MG/ML 1 ML VIAL IVP STA (08:13)
[2017-05-05] MEDS: hydrALAZINE HCL 20 MG/ML 1 ML VIAL IVP STA (08:13)
[2017-05-05] MEDS: METOPROLOL SUCCINATE (ER) 50 MG TAB.ER.24H PO SCH (08:14)
[2017-05-05] MEDS: amLODIPine 10 MG TAB PO SCH (08:14)
[2017-05-05] MEDS: ALLOPURINOL 300 MG TAB PO SCH (08:14)
[2017-05-05] MEDS: TICAGRELOR 90 MG TAB PO SCH ×2 (08:14→20:26)
[2017-05-05] MEDS: ASPIRIN 81 MG PO SCH (08:14)
[2017-05-05 10:11] LABS: Glucose,Whole Blood 199 mg/dL (75-99)
--- NOTE | 2017-05-05 11:42 | P.PN ---
Subjective Progress Note Date: 05/05/17 This is a 61-year-old gentleman with history of ischemic heart disease with a previous stent placement of the proximal and mid LAD, about a year ago, came to the hospital with complaints of chest pain and evidence of inferior wall [place]. Patient had a cardiac catheterization and was found to have clot in the proximal LAD and also left main extending into the circumflex. Patient had intractable pump and also stent placement of the both LAD and also circumflex. Patient subsequently remained hemodynamically stable. Patient had episodes of nonsustained VT during the procedure requiring amiodarone therapy. Patient is currently in sinus rhythm. Patient's eminent bone is being discontinued. He is on beta junior. Denies any chest pain or shortness of breath. He is feeling much better. His groin puncture site seems to be normal with mild ecchymosis. Radial site is also normal. Lungs are clear. Heart is regular. Patient is being transferred to telemetry unit and increase activity gradually. Objective - Vital Signs Vital signs: Vital Signs Temp 98.1 F 05/05/17 08:00 Pulse 59 L 05/05/17 10:00 Resp 19 05/05/17 10:00 BP 119/75 05/05/17 10:00 Pulse Ox 93 L 05/05/17 10:00 Intake & Output 05/04/17 05/05/17 05/05/17 18:59 06:59 18:59 Intake Total 1359.579 876.081 101.342 Output Total 2100 825 300 Balance -740.421 51.081 -198.658 Weight 143.1 kg 142.9 kg 142.9 kg Intake: IV 560.5 Pressure Bag 10.5 Intake, IV Titration 799.079 476.081 101.342 Amount Amiodarone 450 mg In 157.065 156.423 Dextrose 5% in Water 250 ml @ 1 MG/MIN 33.33 mls/ hr IV .Q7H31M SHERLEY Rx#: [id number] Insulin Regular 100 unit 42.014 In Sodium Chloride 0.9% 100 ml @ Per Protocol IV .Q0M SHERLEY Rx#:[id number] Insulin Regular 100 unit 79.658 21.342 In Sodium Chloride 0.9% 100 ml @ Per Protocol IV .Q0M SHERLEY Rx#:[id number] Sodium Chloride 0.9% 1, 600 240 80 000 ml @ 100 mls/hr IV . Q10H SHERLEY Rx#:[id number] Oral 400 Output: Urine 2100 825 300 Other: Voiding Method Urinal Urinal # Voids 1 1 # Bowel Movements 1 ABP, PAP, CO, CI - Last Documented Arterial Blood Pressure 156/76 - Exam GENERAL EXAM: Patient is alert and oriented and doesn't appear to be in any acute distress HEENT: Normocephalic. Normal reaction of pupils, equal size, normal range of extraocular motion. No erythema or exudates in the throat. NECK: No masses, no nuchal rigidity. CHEST: No chest wall deformity. LUNGS: Equal air entry with no crackles or wheeze. HEART: S1 and S2 normal with no audible mumurs or gallops. Regular rhythm ABDOMEN: No hepatosplenomegaly, normal bowel sounds, no guarding or rigidity. SKIN: No rashes CENTRAL NERVOUS SYSTEM: No focal deficits. EXTREMITIES: No cyanosis, clubbing or edema. - Labs CBC & Chem 7: 05/05/17 04:14 05/05/17 04:14 Labs: Abnormal Lab Results - Last 24 Hours (Table) 05/04/17 05/04/17 05/04/17 Range/Units 09:25 12:17 15:10 WBC (3.8-10.6) k/uL Hct (39.0-53.0) % MCV (80.0-100.0) fL Neutrophils # (1.3-7.7) k/uL Sodium (137-145) mmol/L BUN (9-20) mg/dL Creatinine (0.66-1.25) mg/dL Glucose (74-99) mg/dL POC Glucose (mg/dL) 429 H 408 H (75-99) mg/dL Hemoglobin A1c 11.3 H (4.0-6.0) % 05/04/17 05/04/17 05/04/17 Range/Units 15:27 15:59 16:54 WBC (3.8-10.6) k/uL Hct (39.0-53.0) % MCV (80.0-100.0) fL Neutrophils # (1.3-7.7) k/uL Sodium (137-145) mmol/L BUN (9-20) mg/dL Creatinine (0.66-1.25) mg/dL Glucose (74-99) mg/dL POC Glucose (mg/dL) 405 H 397 H 344 H (75-99) mg/dL Hemoglobin A1c (4.0-6.0) % 05/04/17 05/04/17 05/04/17 Range/Units 18:07 21:06 23:51 WBC (3.8-10.6) k/uL Hct (39.0-53.0) % MCV (80.0-100.0) fL Neutrophils # (1.3-7.7) k/uL Sodium (137-145) mmol/L BUN (9-20) mg/dL Creatinine (0.66-1.25) mg/dL Glucose (74-99) mg/dL POC Glucose (mg/dL) 334 H 406 H 361 H (75-99) mg/dL Hemoglobin A1c (4.0-6.0) % 05/05/17 05/05/17 05/05/17 Range/Units 00:57 01:58 03:00 WBC (3.8-10.6) k/uL Hct (39.0-53.0) % MCV (80.0-100.0) fL Neutrophils # (1.3-7.7) k/uL Sodium (137-145) mmol/L BUN (9-20) mg/dL Creatinine (0.66-1.25) mg/dL Glucose (74-99) mg/dL POC Glucose (mg/dL) 322 H 273 H 287 H (75-99) mg/dL Hemoglobin A1c (4.0-6.0) % 05/05/17 05/05/17 05/05/17 Range/Units 04:09 04:14 04:14 WBC 14.6 H (3.8-10.6) k/uL Hct 54.9 H (39.0-53.0) % MCV 101.1 H (80.0-100.0) fL Neutrophils # 11.6 H (1.3-7.7) k/uL Sodium 134 L (137-145) mmol/L BUN 39 H (9-20) mg/dL Creatinine 1.76 H (0.66-1.25) mg/dL Glucose 239 H (74-99) mg/dL POC Glucose (mg/dL) 216 H (75-99) mg/dL Hemoglobin A1c (4.0-6.0) % 05/05/17 05/05/17 05/05/17 Range/Units 04:56 06:01 06:59 WBC (3.8-10.6) k/uL Hct (39.0-53.0) % MCV (80.0-100.0) fL Neutrophils # (1.3-7.7) k/uL Sodium (137-145) mmol/L BUN (9-20) mg/dL Creatinine (0.66-1.25) mg/dL Glucose (74-99) mg/dL POC Glucose (mg/dL) 199 H 170 H 145 H (75-99) mg/dL Hemoglobin A1c (4.0-6.0) % 05/05/17 05/05/17 Range/Units 08:01 10:09 WBC (3.8-10.6) k/uL Hct (39.0-53.0) % MCV (80.0-100.0) fL Neutrophils # (1.3-7.7) k/uL Sodium (137-145) mmol/L BUN (9-20) mg/dL Creatinine (0.66-1.25) mg/dL Glucose (74-99) mg/dL POC Glucose (mg/dL) 145 H 199 H (75-99) mg/dL Hemoglobin A1c (4.0-6.0) % Assessment and Plan (1) ST elevation myocardial infarction (STEMI) Current Visit: Yes Status: Acute Code(s): I21.3 - ST ELEVATION (STEMI) MYOCARDIAL INFARCTION OF RUST SITE SNOMED Code(s): 217124881 (2) Diabetes Current Visit: No Status: Acute Code(s): E11.9 - TYPE 2 DIABETES MELLITUS WITHOUT COMPLICATIONS SNOMED Code(s): 36562101 (3) HTN (hypertension) Current Visit: No Status: Acute Code(s): I10 - ESSENTIAL (PRIMARY) HYPERTENSION SNOMED Code(s): 95285965 (4) Presence of stent in LAD coronary artery Current Visit: No Status: Acute Code(s): Z95.5 - PRESENCE OF CORONARY ANGIOPLASTY IMPLANT AND GRAFT SNOMED Code(s): 102158938486665 Plan: Patient is doing well. Will transfer him to telemetry unit. Discontinue amiodarone. Get an echocardiogram. Increase activity
[2017-05-05 12:03] LABS: Glucose,Whole Blood 186 mg/dL (75-99)
[2017-05-05 14:07] LABS: Glucose,Whole Blood 207 mg/dL (75-99)
[2017-05-05 16:20] LABS: Glucose,Whole Blood 186 mg/dL (75-99)
[2017-05-05 18:12] LABS: Glucose,Whole Blood 209 mg/dL (75-99)
[2017-05-05 20:22] LABS: Glucose,Whole Blood 177 mg/dL (75-99)
[2017-05-05] MEDS: INSULIN REGULAR 100 UNIT in SODIUM CHLORIDE 0.9% 100 ML IV SCH (20:24)
[2017-05-05] MEDS: oxyCODONE-APAP 10-325MG 1 EACH TAB PO PRN (20:31)
[2017-05-05 21:57] LABS: Glucose,Whole Blood 168 mg/dL (75-99)
[2017-05-05 23:23] LABS: Glucose,Whole Blood 160 mg/dL (75-99)
[2017-05-05] MEDS: INSULIN DETEMIR 100 UNIT/ML 10 ML VIAL SQ SCH (23:54)
[2017-05-06 04:47] LABS: HCT 50.8 % (39.0-53.0); HGB 16.2 gm/dL (13.0-17.5); MCH 32.4 pg (25.0-35.0); MCHC 31.8 g/dL (31.0-37.0); MCV 101.8 fL (80.0-100.0); Macrocytosis Slight; Mean Platelet Volume 7.3; Platelet Count 196 k/uL (150-450); RBC 4.99 m/uL (4.30-5.90); RDW 13.8 % (11.5-15.5); WBC 11.7 k/uL (3.8-10.6)
[2017-05-06 05:02] LABS: Albumin 3.2 g/dL (3.5-5.0); Calcium 9.2 mg/dL (8.4-10.2); Total Bilirubin 1.1 mg/dL (0.2-1.3); Total Protein 6.3 g/dL (6.3-8.2)
--- NOTE | 2017-05-06 07:00 | PN ---
PROGRESS NOTE DATE OF SERVICE: 05/05/17 PRESENT COMPLAINT: Chest pain. INTERVAL HISTORY: Patient presented with ST-elevation myocardial infarction with stent to the LAD. Doing well. Stable in the ICU. No chest pain or short of breath. REVIEW OF SYSTEMS: Done for constitutional, cardiovascular, GI, pulmonary, relevant findings as above. CURRENT MEDICATIONS: Reviewed. PHYSICAL EXAMINATION: Temperature 98.1, pulse , blood pressure 120/80, pulse ox 97% on room air. General appearance: Lying in bed comfortable. EYES: Pupils equal. Conjunctivae are normal HEENT: Oral cavity normal. Neck: JVD not raised. Mass not palpable. Respiratory effort lungs are clear. Cardiovascular 1st and 2nd sounds no edema. ABDOMEN: Soft, nontender. Liver and spleen not palpable. Psychiatry: Alert and oriented x3. Mood and affect normal. INVESTIGATIONS: White count 14.6, hemoglobin 13, potassium 4.2, BUN 39, creatinine 1.76. Troponin peaked at 171. ASSESSMENT: 1. Acute inferior ST-elevation myocardial infarction with successful angioplasty stenting to the circumflex and left anterior descending coronary artery. 2. Essential hypertension. 3. Obesity BMI greater than 40. 4. Diabetes mellitus type 2, chronically on insulin. 5. 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 PLAN: Continue current medication and treatment plan per Cardiology. Amiodarone has been taken off. Check the BMP again, we will resume the patient's Lantus tonight. MMODL / IJN: [id number] /
[2017-05-06 07:21] LABS: Glucose,Whole Blood 225 mg/dL (75-99)
[2017-05-06] MEDS: INSULIN ASPART 100 UNIT/ML 1 ML 10 ML VIAL SQ SCH ×7 (07:41→21:34)
[2017-05-06] MEDS: amLODIPine 10 MG TAB PO SCH (08:44)
[2017-05-06] MEDS: METOPROLOL SUCCINATE (ER) 50 MG TAB.ER.24H PO SCH (08:44)
[2017-05-06] MEDS: ASPIRIN 81 MG PO SCH (08:44)
[2017-05-06] MEDS: ALLOPURINOL 300 MG TAB PO SCH (08:44)
[2017-05-06] MEDS: TICAGRELOR 90 MG TAB PO SCH ×2 (08:45→21:35)
--- NOTE | 2017-05-06 09:53 | ECHOF ---
Referral Reason:stemi MEASUREMENTS -------- HEIGHT: 182.9 cm WEIGHT: 142.9 kg BP: 119/75 RVIDd: 3.4 cm (< 3.3) IVSd: 1.4 cm (0.6 - 1.1) LVIDd: 4.3 cm (3.9 - 5.3) LVPWd: 1.4 cm (0.6 - 1.1) IVSs: 2.2 cm LVIDs: 3.0 cm LVPWs: 2.5 cm LA Diam: 4.1 cm (2.7 - 3.8) LAESV Index (A-L): 27.49 ml/m Ao Diam: 3.0 cm (2.0 - 3.7) AV Cusp: 2.2 cm (1.5 - 2.6) MV EXCURSION: 12.495 mm (> 18.000) MV EF SLOPE: 41 mm/s (70 - 150) EPSS: 0.7 cm MV E Rm: 0.98 m/s MV DecT: 219 ms MV A Rm: 0.88 m/s MV E/A Ratio: 1.12 AV maxP.00 mmHg AV meanP.65 mmHg RAP: 5.00 mmHg RVSP: 21.15 mmHg FINDINGS -------- Sinus rhythm. This was a technically adequate study. The left ventricular size is normal. There is moderate concentric left ventricular hypertrophy. O verall left ventricular systolic function is mildly impaired with, an EF between 45 - 50 %. Basal l ateral LV wall motion is hypokinetic. Basal posterior LV wall motion is hypokinetic. Basal infe rior LV wall motion is hypokinetic. Mid lateral LV wall motion is hypokinetic. Mid posterior LV wall motion is hypokinetic. The right ventricle is mildly enlarged. Normal LA size by volume 22+/-6 ml/m2. The right atrium is normal in size. There is mild aortic valve sclerosis. Trace amount of aortic regurgitation. There is mild aortic stenosis present. Peak/mean gradient across the Aortic Valve is 14.00mmHg / 6.65mmHg. The mitral valve is normal. Mild mitral regurgitation is present. Mild tricuspid regurgitation present. Right ventricular systolic pressure is normal at < 35 mmHg. The pulmonic valve was not well visualized. There is no pulmonic regurgitation present. The aortic root size is normal. The inferior vena cava is mildly dilated. There is no pericardial effusion. CONCLUSIONS -------- 1. Sinus rhythm. 2. This was a technically adequate study. 3. The left ventricular size is normal. 4. There is moderate concentric left ventricular hypertrophy. 5. Overall left ventricular systolic function is mildly impaired with, an EF between 45 - 50 %. 6. Basal lateral LV wall motion is hypokinetic. 7. Basal posterior LV wall motion is hypokinetic. 8. Basal inferior LV wall motion is hypokinetic. 9. Mid lateral LV wall motion is hypokinetic. 10. Mid posterior LV wall motion is hypokinetic. 11. The right ventricle is mildly enlarged. 12. Normal LA size by volume 22+/-6 ml/m2. 13. There is mild aortic valve sclerosis. 14. Trace amount of aortic regurgitation. 15. There is mild aortic stenosis present. 16. Peak/mean gradient across the Aortic Valve is 14.00mmHg / 6.65mmHg. 17. Mild mitral regurgitation is present. 18. Mild tricuspid regurgitation present. 19. Right ventricular systolic pressure is normal at < 35 mmHg. 20. The pulmonic valve was not well visualized. 21. There is no pulmonic regurgitation present. 22. The aortic root size is normal. 23. The inferior vena cava is mildly dilated. 24. There is no pericardial effusion. PERSONNEL SPECIALIST: Gracie Diane RDCS
--- NOTE | 2017-05-06 10:03 | P.PN ---
Subjective This is a 61-year-old gentleman with history of ischemic heart disease with a previous stent placement of the proximal and mid LAD, about a year ago, came to the hospital with complaints of chest pain and evidence of inferior wall [place]. Patient had a cardiac catheterization and was found to have clot in the proximal LAD and also left main extending into the circumflex. Patient had intractable pump and also stent placement of the both LAD and also circumflex. Patient subsequently remained hemodynamically stable. Patient had episodes of nonsustained VT during the procedure requiring amiodarone therapy. Patient is currently in sinus rhythm. Patient's eminent bone is being discontinued. He is on beta junior. Denies any chest pain or shortness of breath. He is feeling much better. His groin puncture site seems to be normal with mild ecchymosis. Radial site is also normal. Lungs are clear. Heart is regular. Patient is being transferred to telemetry unit and increase activity gradually. Follow-up for 05/06/2017. This patient is clinically stable. His echo Cardigan showed normal LV function without any significant focal abnormalities. Denies any chest pain or shortness of breath. Patient is waiting to go to telemetry unit. Will increase activity as tolerated. Possible discharge in 24 hours. Objective - Vital Signs Vital signs: Vital Signs Temp 98.4 F 05/06/17 08:00 Pulse 70 05/06/17 08:00 Resp 17 05/06/17 08:00 BP 126/67 05/06/17 08:00 Pulse Ox 96 05/06/17 08:58 Intake & Output 05/05/17 05/06/17 05/06/17 18:59 06:59 18:59 Intake Total 241.342 9.983 Output Total 300 0 Balance -58.658 9.983 0 Weight 142.9 kg 139.8 kg Intake: Intake, IV Titration 241.342 9.983 Amount Insulin Regular 100 unit 21.342 9.983 In Sodium Chloride 0.9% 100 ml @ Per Protocol IV .Q0M [facility]LEY Rx#:[id number] Sodium Chloride 0.9% 1, 220 000 ml @ 100 mls/hr IV . Q10H [facility]ERLEY Rx#:[id number] Output: Urine 300 0 Other: Voiding Method Toilet Toilet Urinal Urinal # Voids 1 1 0 ABP, PAP, CO, CI - Last Documented Arterial Blood Pressure 156/76 - Exam GENERAL EXAM: Patient is alert and oriented and doesn't appear to be in any acute distress HEENT: Normocephalic. Normal reaction of pupils, equal size, normal range of extraocular motion. No erythema or exudates in the throat. NECK: No masses, no nuchal rigidity. CHEST: No chest wall deformity. LUNGS: Equal air entry with no crackles or wheeze. HEART: S1 and S2 normal with no audible mumurs or gallops. Regular rhythm ABDOMEN: No hepatosplenomegaly, normal bowel sounds, no guarding or rigidity. SKIN: No rashes CENTRAL NERVOUS SYSTEM: No focal deficits. EXTREMITIES: No cyanosis, clubbing or edema. - Labs CBC & Chem 7: 05/06/17 04:27 05/06/17 04:27 Labs: Abnormal Lab Results - Last 24 Hours (Table) 05/05/17 05/05/17 05/05/17 Range/Units 04:14 10:09 12:02 WBC (3.8-10.6) k/uL MCV (80.0-100.0) fL Sodium (137-145) mmol/L Carbon Dioxide (22-30) mmol/L BUN (9-20) mg/dL Creatinine (0.66-1.25) mg/dL Glucose (74-99) mg/dL POC Glucose (mg/dL) 199 H 186 H (75-99) mg/dL AST (17-59) U/L ALT (21-72) U/L Troponin I 171.000 H* (0.000-0.034) ng/mL Albumin (3.5-5.0) g/dL 05/05/17 05/05/17 05/05/17 Range/Units 14:04 16:18 18:10 WBC (3.8-10.6) k/uL MCV (80.0-100.0) fL Sodium (137-145) mmol/L Carbon Dioxide (22-30) mmol/L BUN (9-20) mg/dL Creatinine (0.66-1.25) mg/dL Glucose (74-99) mg/dL POC Glucose (mg/dL) 207 H 186 H 209 H (75-99) mg/dL AST (17-59) U/L ALT (21-72) U/L Troponin I (0.000-0.034) ng/mL Albumin (3.5-5.0) g/dL 05/05/17 05/05/17 05/05/17 Range/Units 20:20 21:55 23:22 WBC (3.8-10.6) k/uL MCV (80.0-100.0) fL Sodium (137-145) mmol/L Carbon Dioxide (22-30) mmol/L BUN (9-20) mg/dL Creatinine (0.66-1.25) mg/dL Glucose (74-99) mg/dL POC Glucose (mg/dL) 177 H 168 H 160 H (75-99) mg/dL AST (17-59) U/L ALT (21-72) U/L Troponin I (0.000-0.034) ng/mL Albumin (3.5-5.0) g/dL 05/06/17 05/06/17 05/06/17 Range/Units 04:27 04:27 07:20 WBC 11.7 H (3.8-10.6) k/uL MCV 101.8 H (80.0-100.0) fL Sodium 134 L (137-145) mmol/L Carbon Dioxide 21 L (22-30) mmol/L BUN 33 H (9-20) mg/dL Creatinine 1.63 H (0.66-1.25) mg/dL Glucose 208 H (74-99) mg/dL POC Glucose (mg/dL) 225 H (75-99) mg/dL AST 180 H (17-59) U/L ALT 105 H (21-72) U/L Troponin I (0.000-0.034) ng/mL Albumin 3.2 L (3.5-5.0) g/dL Assessment and Plan (1) ST elevation myocardial infarction (STEMI) Current Visit: Yes Status: Acute Code(s): I21.3 - ST ELEVATION (STEMI) MYOCARDIAL INFARCTION OF RUST SITE SNOMED Code(s): 706851672 (2) Diabetes Current Visit: No Status: Acute Code(s): E11.9 - TYPE 2 DIABETES MELLITUS WITHOUT COMPLICATIONS SNOMED Code(s): 79007527 (3) HTN (hypertension) Current Visit: No Status: Acute Code(s): I10 - ESSENTIAL (PRIMARY) HYPERTENSION SNOMED Code(s): 57448627 (4) Presence of stent in LAD coronary artery Current Visit: No Status: Acute Code(s): Z95.5 - PRESENCE OF CORONARY ANGIOPLASTY IMPLANT AND GRAFT SNOMED Code(s): 488373442348769 Plan: Clinically stable. No complaints of chest pain or shortness of breath. No arrhythmias. Waiting to go to telemetry unit. Increase activity as tolerated. Possible discharge in the morning
[2017-05-06 11:58] LABS: Glucose,Whole Blood 253 mg/dL (75-99)
[2017-05-06 17:15] LABS: Glucose,Whole Blood 128 mg/dL (75-99)
[2017-05-06 20:48] LABS: Glucose,Whole Blood 143 mg/dL (75-99)
[2017-05-06] MEDS: INSULIN DETEMIR 100 UNIT/ML 10 ML VIAL SQ SCH (21:35)
[2017-05-06] MEDS ORDERED: INSULIN DETEMIR 100 UNIT/ML 10 ML VIAL SQ SCH (23:00)
--- NOTE | 2017-05-06 23:48 | PN ---
PROGRESS NOTE PRESENTING COMPLAINT: Chest pain. INTERVAL HISTORY: This patient presented with ST-elevation myocardial infarction with stent to the LAD. Remains in the ICU. Doing well. Has been out of bed. No chest pain or shortness of breath. Tolerating a diet comfortable. REVIEW OF SYSTEMS: Done for constitutional, cardiovascular, GI, pulmonary, relevant findings as above. CURRENT MEDICATIONS: Reviewed. EXAMINATION: Temperature 98.1, pulse 91, respiration 20, blood pressure 136/82, pulse 97%. General appearance propped up in bed comfortable. Eyes: Pupils equal. Conjunctivae are normal. HEENT external appearance of nose and ears normal. Oral cavity normal. Neck JVD not raised. Mass not palpable. Respiratory effort: Lungs clear. Cardiovascular 1st and 2nd sounds normal. No edema. ABDOMEN: Soft, nontender. Liver and spleen not palpable. Psychiatry: Alert and oriented times three. Mood and affect normal. INVESTIGATIONS: White count 11.7, hemoglobin 16.2, potassium 5, BUN 33, creatinine 1.63. Accu-Cheks are noted. ASSESSMENT: 1. Acute inferior ST-elevation myocardial infarction, successful angioplasty stenting to circumflex with LAD. 2. Essential hypertension. 3. Obesity BMI greater than 40. 4. Diabetes mellitus type 2, chronically on insulin. 5. 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 PLAN: Continue current medication and treatment plan. The patient is overall doing much better. Patient's dose of Lantus will be increased to 60 units starting tonight. We will also increase the patient's NovoLog to 30 units a.c. t.i.d. MMJORGEL / ALVINN: [id number] /
[2017-05-07 04:44] LABS: HCT 51.7 % (39.0-53.0); HGB 16.1 gm/dL (13.0-17.5); MCH 31.7 pg (25.0-35.0); MCHC 31.2 g/dL (31.0-37.0); MCV 101.9 fL (80.0-100.0); Macrocytosis Slight; Mean Platelet Volume 7.3; Platelet Count 217 k/uL (150-450); RBC 5.08 m/uL (4.30-5.90); RDW 13.5 % (11.5-15.5); WBC 9.3 k/uL (3.8-10.6)
[2017-05-07 04:59] LABS: Calcium 9.1 mg/dL (8.4-10.2); Phosphorus 3.1 mg/dL (2.5-4.5); Potassium 4.4 mmol/L (3.5-5.1)
[2017-05-07 07:40] LABS: Glucose,Whole Blood 187 mg/dL (75-99)
[2017-05-07] MEDS: INSULIN ASPART 100 UNIT/ML 1 ML 10 ML VIAL SQ SCH ×4 (08:19→12:36)
[2017-05-07] MEDS: ASPIRIN 81 MG PO SCH (08:20)
[2017-05-07] MEDS: METOPROLOL SUCCINATE (ER) 50 MG TAB.ER.24H PO SCH (08:20)
[2017-05-07] MEDS: TICAGRELOR 90 MG TAB PO SCH (08:20)
[2017-05-07] MEDS: amLODIPine 10 MG TAB PO SCH (08:20)
[2017-05-07] MEDS: ALLOPURINOL 300 MG TAB PO SCH (08:20)
--- NOTE | 2017-05-07 10:47 | P.PN ---
Subjective Progress Note Date: 05/07/17 This is a 61-year-old gentleman with history of ischemic heart disease with a previous stent placement of the proximal and mid LAD, about a year ago, came to the hospital with complaints of chest pain and evidence of inferior wall [place]. Patient had a cardiac catheterization and was found to have clot in the proximal LAD and also left main extending into the circumflex. Patient had intractable pump and also stent placement of the both LAD and also circumflex. Patient subsequently remained hemodynamically stable. Patient had episodes of nonsustained VT during the procedure requiring amiodarone therapy. Patient is currently in sinus rhythm. Patient's eminent bone is being discontinued. He is on beta junior. Denies any chest pain or shortness of breath. He is feeling much better. His groin puncture site seems to be normal with mild ecchymosis. Radial site is also normal. Lungs are clear. Heart is regular. Patient is being transferred to telemetry unit and increase activity gradually. Follow-up for 05/06/2017. This patient is clinically stable. His echo Cardigan showed normal LV function without any significant focal abnormalities. Denies any chest pain or shortness of breath. Patient is waiting to go to telemetry unit. Will increase activity as tolerated. Possible discharge in 24 hours. Follow-up note for 05/07/2017. Patient is clinically stable. Denies any chest pain or shortness of breath. He remained in the intensive care unit because of lack of beds on the telemetry. Didn't have any cardiac arrhythmias. Patient is tolerating medications well. Vital signs are stable. Patient could be discharged home. Follow-up with the Dr. Hitchcock as an outpatient Objective - Vital Signs Vital signs: Vital Signs Temp 98.2 F 05/07/17 01:00 Pulse 64 05/07/17 07:00 Resp 14 05/07/17 07:00 BP 121/79 05/07/17 04:00 Pulse Ox 99 05/07/17 02:00 Intake & Output 05/06/17 05/07/17 05/07/17 18:59 06:59 18:59 Intake Total 720 Output Total 0 Balance 0 720 Weight 140.4 kg Intake: Oral 720 Output: Urine 0 Other: Voiding Method Toilet Toilet Urinal Urinal # Voids 1 1 ABP, PAP, CO, CI - Last Documented Arterial Blood Pressure 156/76 - Exam GENERAL EXAM: Patient is alert and oriented and doesn't appear to be in any acute distress HEENT: Normocephalic. Normal reaction of pupils, equal size, normal range of extraocular motion. No erythema or exudates in the throat. NECK: No masses, no nuchal rigidity. CHEST: No chest wall deformity. LUNGS: Equal air entry with no crackles or wheeze. HEART: S1 and S2 normal with no audible mumurs or gallops. Regular rhythm ABDOMEN: No hepatosplenomegaly, normal bowel sounds, no guarding or rigidity. SKIN: No rashes CENTRAL NERVOUS SYSTEM: No focal deficits. EXTREMITIES: No cyanosis, clubbing or edema. - Labs CBC & Chem 7: 05/07/17 04:18 05/07/17 04:18 Labs: Abnormal Lab Results - Last 24 Hours (Table) 05/06/17 05/06/17 05/06/17 Range/Units 11:55 17:13 20:46 MCV (80.0-100.0) fL Sodium (137-145) mmol/L BUN (9-20) mg/dL Creatinine (0.66-1.25) mg/dL Glucose (74-99) mg/dL POC Glucose (mg/dL) 253 H 128 H 143 H (75-99) mg/dL 05/07/17 05/07/17 05/07/17 Range/Units 04:18 04:18 07:38 MCV 101.9 H (80.0-100.0) fL Sodium 135 L (137-145) mmol/L BUN 31 H (9-20) mg/dL Creatinine 1.60 H (0.66-1.25) mg/dL Glucose 177 H (74-99) mg/dL POC Glucose (mg/dL) 187 H (75-99) mg/dL Assessment and Plan (1) ST elevation myocardial infarction (STEMI) Current Visit: Yes Status: Acute Code(s): I21.3 - ST ELEVATION (STEMI) MYOCARDIAL INFARCTION OF [facility] SITE SNOMED Code(s): 471977317 (2) Diabetes Current Visit: No Status: Acute Code(s): E11.9 - TYPE 2 DIABETES MELLITUS WITHOUT COMPLICATIONS SNOMED Code(s): 56118052 (3) HTN (hypertension) Current Visit: No Status: Acute Code(s): I10 - ESSENTIAL (PRIMARY) HYPERTENSION SNOMED Code(s): 43403685 (4) Presence of stent in LAD coronary artery Current Visit: No Status: Acute Code(s): Z95.5 - PRESENCE OF CORONARY ANGIOPLASTY IMPLANT AND GRAFT SNOMED Code(s): 918200587875417 Plan: Patient clinically remains stable. No chest pains or arrhythmias. Lungs are clear. Heart is regular. Patient could be discharged home
[2017-05-07 11:35] LABS: Glucose,Whole Blood 185 mg/dL (75-99)
[2017-05-07 12:56] VITALS: BP 138/84; PULSE 60; RESP 25; TEMP 97.9
[2017-05-07] MEDS ORDERED: ATORVASTATIN 80 MG TAB PO SCH (21:00)
--- NOTE | 2017-05-08 03:35 | DS ---
DISCHARGE SUMMARY DATE OF ADMISSION: 05/04/17. DATE OF DISCHARGE: 05/07/17. FINAL DIAGNOSES: 1. Acute ST elevation inferior myocardial infarction with successful angioplasty stenting to circumflex and LAD. 2. Essential hypertension. 3. Obesity BMI greater than 40. 4. Diabetes mellitus type 2, chronically on insulin. 5. 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 6. Chronic congestive heart failure, from systolic dysfunction, EF 45-50% from underlying ischemic heart disease. HOSPITAL COURSE: This patient presented with acute [place]. Successful angioplasty and stenting was carried out as above. More details in Dr. Levin's note. At the time of discharge, up and about. No chest pain or shortness of breath. The patient's BUN currently is 31, creatinine is 1.6. The patient did have a 2-D echocardiogram. EF of 45-50% with wall motion abnormalities. CONSULTATIONS: Dr. Levin from Interventional Cardiology and Dr. Solis from Cardiology. Care was discussed with the patient and family at the bedside. EXAM: Lungs are clear. Cardiovascular: 1st and second sounds normal. DISCHARGE MEDICATIONS: 1. Colchicine 0.6 mg p.o. daily. 2. Insulin Aspart 30 units subcu a.c. t.i.d. 3. Lantus 60 units subcu q.h.s. 4. Percocet 10 1 tab q.i.d. p.r.n. 5. Nitrostat 0.4 sublingual q.5 p.r.n. 6. Norvasc 10 mg p.o. daily. 7. Allopurinol 300 mg p.o. daily. 8. Aspirin 81 mg p.o. daily. 9. Toprol-XL 50 mg p.o. daily. 10.Lipitor 80 mg q.h.s. 11.Chlorthalidone 25 mg p.o. daily. 12.Brilinta 90 mg p.o. b.i.d. FOLLOW UP: With Dr. Lee on May 21, 2017. Follow with Dr. Levin on May 15, 2017. MMJORGEL / ALVINN: [id number] /
== END 2017-05-07 15:17 | disposition home or self-care (01) | DRG 247 ==
LOC: EC 09:19 → 6ICU 09:52
PROVIDERS: ADMIT Hospitalist; ATTEND Hospitalist
PROC: 027135Z Dilation of Coronary Artery, Two Arteries with Two Drug-eluting Intraluminal Devices, Percutaneous Approach (ICD-10-PCS; principal; 2017-05-04 09:46)
PROC: 02C23ZZ Extirpation of Matter from Coronary Artery, Three Arteries, Percutaneous Approach (ICD-10-PCS; 2017-05-04 09:46)
PROC: 4A023N7 Measurement of Cardiac Sampling and Pressure, Left Heart, Percutaneous Approach (ICD-10-PCS; 2017-05-04 09:46)
PROC: B2111ZZ Fluoroscopy of Multiple Coronary Arteries using Low Osmolar Contrast (ICD-10-PCS; 2017-05-04 09:46)
DX: I21.19 ST elevation (STEMI) myocardial infarction involving other coronary artery of inferior wall (principal); E11.21 Type 2 diabetes mellitus with diabetic nephropathy; I13.0 Hypertensive heart and chronic kidney disease with heart failure and stage 1 through stage 4 chronic kidney disease, or unspecified chronic kidney disease; I50.22 Chronic systolic (congestive) heart failure; Z68.41 Body mass index [BMI] 40.0-44.9, adult; T82.855A Stenosis of coronary artery stent, initial encounter; T82.867A Thrombosis due to cardiac prosthetic devices, implants and grafts, initial encounter; E11.22 Type 2 diabetes mellitus with diabetic chronic kidney disease; E66.01 Morbid (severe) obesity due to excess calories; N18.3 Chronic kidney disease, stage 3 (moderate); E78.00 Pure hypercholesterolemia, unspecified; I25.10 Atherosclerotic heart disease of native coronary artery without angina pectoris; G47.30 Sleep apnea, unspecified; Y83.1 Surgical operation with implant of artificial internal device as the cause of abnormal reaction of the patient, or of later complication, without mention of misadventure at the time of the procedure; Z79.891 Long term (current) use of opiate analgesic; Z95.5 Presence of coronary angioplasty implant and graft; Z83.3 Family history of diabetes mellitus; Z82.49 Family history of ischemic heart disease and other diseases of the circulatory system; Z79.899 Other long term (current) drug therapy; Z79.4 Long term (current) use of insulin; Z79.82 Long term (current) use of aspirin; I25.2 Old myocardial infarction
CPT/HCPCS: 33967; 36415; 71045; 80048; 80053; 82550; 82553; 83036; 83735; 84100; 84484; 85025; 85027; 85610; 85730; 93005; 93306; 93458; 96365; 96375; 99291

== ENCOUNTER → 2017-12-08 | Outpatient (CLI) | payer BC ==
--- NOTE | 2017-12-08 08:29 | FL ---
"ESOPHOGRAM. HISTORY: Dysphagia Esophagram was performed per the air contrast technique. The patient swallowed barium and effervesce nt crystals without difficulty or delay. Esophageal peristalsis and motility appear to be within normal limits. There is luminal narrowing noted approximately 3 cm proximal to the GE junction which may reflect und erlying malignancy. Direct visualization and tissue diagnosis is advised. No hiatal hernia seen. Subsequently single contrast cervical esophagram was performed which fails demonstrate evidence for a spiration penetration or mass. IMPRESSION: 1. There is luminal narrowing noted approximately 3 cm from the GE junction which may reflect underly ing malignancy. Recommend visualization and tissue diagnosis is recommended. A Yellow level critical message alert has been initiated for Best Lee DO via the [employer] | Critical Results System on 12/08/2017 8:27 AM. This message alert has been sent to Best enriquez DO via the preferences provided by the clinician for the receipt of Radiology Critical Findings. Edenilson essage ID [id number]."
== END | disposition home or self-care (01) ==
LOC: RADFLWHC 07:44
PROVIDERS: ATTEND Family Medicine
DX: R47.02 Dysphasia (principal)
CPT/HCPCS: 74220

== ENCOUNTER 2017-12-25 06:55 | Day surgery (SDC) | payer BC ==
[2017-12-23 08:57] VITALS: BMI 42.0
[~2017-12-25 06:55] MED LIST: LACTATED RINGERS 1,000 ML IV SCH
[2017-12-25 07:23] VITALS: RESP 16; TEMP 98.5
[2017-12-25 07:23] LABS: Glucose,Whole Blood 147 mg/dL (75-99)
[2017-12-25] MEDS ORDERED: LIDOCAINE 1% 20 ML VIAL (10MG/ML) FOR IV START INTRADERMA ONE (07:23)
[2017-12-25] MEDS ORDERED: PROPOFOL 10 MG/ML 20 ML VIAL IV ONE (08:43)
[2017-12-25] MEDS ORDERED: LIDOCAINE 1% INJ 10MG/ML (20 ML MDV) ONE (08:43)
[2017-12-25 09:26] LABS: Glucose,Whole Blood 161 mg/dL (75-99)
[2017-12-25 09:34] VITALS: BP 139/90; PULSE 53
--- NOTE | 2017-12-25 15:10 | P.PCN ---
Date of Procedure: 12/25/17 Procedure(s) Performed: Procedure: Esophagogastroduodenoscopy and biopsy. Preoperative diagnosis: Dysphagia and abnormal esophagogram. Postoperative diagnosis: 1. Esophageal mass partially obstructing the lumen. 2. Pictures and multiple biopsies obtained. Preparation and sedation: Was provided by anesthesia. Brief clinical history: The patient is a 62-year-old male who is scheduled for this evaluation because of dysphagia of around 1 month duration. The patient gave history of reflux disease in the remote past but had no recent issues with reflux or heartburn. He denied bleeding or weight loss. He had a barium swallow around 2 weeks ago that raised the possibility of neoplastic lesion in the distal esophagus. Procedure: With the patient on his left lateral decubitus position and after informed consent and adequate sedation, I passed the Olympus-GIF 160 video upper endoscope through the cricopharyngeus down the esophagus. The distal esophagus showed a partially obstructing lesion starting at around 36 cm from the incisors and extending for 2 or 3 cm. It was friable. The surrounding mucosa was salmon colored raising the possibility that this is a mass arising in a segment of Reynoso's. The tubular esophagus continued to around 39 or 40 cm from the incisors then there is a hiatal hernia measuring around 2 cm. There was no significant resistance to the advancement of the endoscope through that segment. The endoscope was then passed into the stomach which was insufflated with air including the retroflex view in the cardia. Finally, the endoscope was passed through the pylorus into the duodenum. The stomach, pyloric channel, duodenal bulb, post bulbar area and descending duodenum appeared within normal limits. I obtained multiple pictures from the esophageal lesion and multiple biopsies then the endoscope was withdrawn. The patient tolerated the procedure well. Plan: I summarized the findings to the patient. Will await biopsy results and make appropriate plans and referrals accordingly.
== END 2017-12-25 09:45 | disposition home or self-care (01) ==
LOC: ORWHC2ENDO 06:55
DX: C15.9 Malignant neoplasm of esophagus, unspecified (principal); I25.10 Atherosclerotic heart disease of native coronary artery without angina pectoris; I10 Essential (primary) hypertension; E11.9 Type 2 diabetes mellitus without complications; Z79.4 Long term (current) use of insulin; E78.5 Hyperlipidemia, unspecified; G47.33 Obstructive sleep apnea (adult) (pediatric); Z99.89 Dependence on other enabling machines and devices; I25.2 Old myocardial infarction; Z95.5 Presence of coronary angioplasty implant and graft; Z79.02 Long term (current) use of antithrombotics/antiplatelets; Z79.891 Long term (current) use of opiate analgesic; Z79.899 Other long term (current) drug therapy
CPT/HCPCS: 88305; 43239; J2001; J2704

== ENCOUNTER → 2018-01-10 | Outpatient (CLI) | payer BC ==
--- NOTE | 2018-01-10 18:28 | PE ---
EXAMINATION TYPE: PET CT fusion skull to thigh DATE OF EXAM: 01/10/2018 COMPARISON: Esophagram December 08, 2017 HISTORY: Esophageal cancer initial staging study. Positive Biopsy earlier this month . TECHNIQUE: Following the intravenous administration of 13.598 mCi of F-18 FDG, whole body images are performed from the skull base to the midthigh. Images are reviewed on the computer in the coronal, axial, and sagittal planes. Reconstructed rotating images are created on independent workstation and reviewed on the computer. A noncontrast CT is performed in conjunction with the PET scan. SCAN: Initial Scan FINDINGS: SKULL BASE AND NECK: No areas of suspicious hypermetabolic uptake are seen. CHEST, MEDIASTINUM, AND HILAR REGION: Corresponding to recent esophagram there is hypermetabolic upta ke over a short segment of the mid to distal esophagus centered at level of left atrium axial image 1 14, max SUV is 4.67. Length of tumor roughly 2 to 3 cm which correlates with esophagram. No suspiciou s adjacent adenopathy is seen. No additional areas of abnormal hypermetabolic uptake in the thorax ar e noted. ABDOMEN AND PELVIS: No areas of abnormal hypermetabolic uptake are present. OSSEOUS STRUCTURES: No areas of suspicious hypermetabolic uptake are seen. OTHER CT: There is mild to moderate calcified plaque at bilateral carotid bulbs. Cardiomegaly is present. Coronary artery calcification is seen which is noted marker for coronary art margot disease. There is background mild underlying emphysematous change. Liver is diffusely low dense consistent with fatty infiltration relative to spleen. Bladder wall is mild to moderately thickened, prostate gland is upper limits of normal in size, corre late prominent obstruction related to BPH. Scattered pelvic lymph nodes are present. Enlarged right groin lymph node axial image 274 measures 2.5 x 1.5 cm without abnormal metabolic upta ke. IMPRESSION: Hypermetabolic uptake in the biopsy-proven malignancy mid to distal esophagus. No suspici ous adenopathy or metastatic malignancy noted.
== END | disposition home or self-care (01) ==
LOC: RADPETMAIN 13:38
PROVIDERS: ATTEND Internal Medicine Hematology & Oncology
DX: C15.5 Malignant neoplasm of lower third of esophagus (principal)
CPT/HCPCS: 78815; A9552

== ENCOUNTER → 2018-04-18 | Outpatient (CLI) | payer BC ==
--- NOTE | 2018-04-20 15:06 | PE ---
EXAMINATION TYPE: PET CT fusion skull to thigh DATE OF EXAM: 04/18/2018 COMPARISON: PET/CT January 10, 2018 HISTORY: Esophageal cancer progress study completed chemotherapy and radiation treatment March 20 TECHNIQUE: Following the intravenous administration of 11.45 mCi of F-18 FDG, whole body images are performed from the skull base to the midthigh. Images are reviewed on the computer in the coronal, a xial, and sagittal planes. Reconstructed rotating images are created on independent workstation and reviewed on the computer. A noncontrast CT is performed in conjunction with the PET scan. SCAN: Subsequent Scan FINDINGS: SKULL BASE AND NECK: No new areas of suspicious hypermetabolic uptake are seen. CHEST, MEDIASTINUM, AND HILAR REGION: There is interval improvement in suspicious mass with focal hyp ermetabolic uptake mid to distal esophagus subcarinal region near axial image 112, max SUV is 2.94 wi thout obvious residual mass or significant focal hypermetabolic uptake identified. No new adjacent ad enopathy is seen. No new areas of abnormal hypermetabolic uptake are seen. ABDOMEN AND PELVIS: No new areas of suspicious hypermetabolic uptake are present. OSSEOUS STRUCTURES: No new areas of suspicious hypermetabolic uptake are seen. OTHER CT: There is mild calcified plaque at bilateral carotid bulbs redemonstrated. Cardiomegaly is again seen. Coronary artery calcification is redemonstrated which is noted marker for coronary artery disease. There is background mild to moderate underlying emphysematous change redemo nstrated. Liver is diffusely low dense consistent with fatty infiltration relative to spleen. Bladder is poorly distended with moderate wall thickening, prostate gland is upper limits of normal in size, suspect o utlet obstruction related to BPH similar to prior study. Scattered pelvic phleboliths are present. Stable enlarged inferior right groin lymph node axial image 272 measures 2 2.4 x 1.2 cm without abnor mal metabolic uptake. IMPRESSION: Positive tumor response in mid to distal esophageal neoplasm. No new suspicious adenopath y or metastatic malignancy is present.
== END | disposition home or self-care (01) ==
LOC: RADPETMAIN 07:26
PROVIDERS: ATTEND Internal Medicine Hematology & Oncology
DX: C15.5 Malignant neoplasm of lower third of esophagus (principal); E11.9 Type 2 diabetes mellitus without complications
CPT/HCPCS: 78815; A9552

== ENCOUNTER 2018-05-19 06:46 | Day surgery (SDC) | payer BC ==
[2018-05-15 08:50] VITALS: BMI 36.3
[~2018-05-19 06:46] MED LIST changes: +LIDOCAINE 1% 20 ML VIAL (10MG/ML) FOR IV START INTRADERMA PRN
[2018-05-19 07:09] VITALS: TEMP 98.1
[2018-05-19] MEDS ORDERED: LACTATED RINGERS 1,000 ML IV ONE ×2 (07:17)
[2018-05-19 07:23] LABS: Glucose,Whole Blood 74 mg/dL (75-99)
[2018-05-19] MEDS ORDERED: fentaNYL (PF) 50 MCG/ML 2 ML AMP ONE (08:13)
[2018-05-19] MEDS ORDERED: PROPOFOL 10 MG/ML 20 ML VIAL IV ONE (08:13)
[2018-05-19] MEDS ORDERED: LIDOCAINE 1% INJ 10MG/ML (20 ML MDV) ONE (08:13)
[2018-05-19 08:43] LABS: Glucose,Whole Blood 72 mg/dL (75-99)
[2018-05-19 08:57] VITALS: BP 125/75; PULSE 67; RESP 16
--- NOTE | 2018-05-21 13:29 | P.PCN ---
Date of Procedure: 05/19/18 Procedure(s) Performed: Procedure: Esophagogastroduodenoscopy. 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 Postoperative diagnosis: Hiatal hernia and Reynoso's esophagus with significant , and possibly complete resolution, of the esophageal cancer. Preparation and sedation: Was provided by anesthesia. Brief clinical history: The patient is a 62-year-old male who had an upper endoscopy with biopsies 12/25/2017 because of dysphagia of 1 month duration. The patient has history of reflux disease and he had an abnormal barium swallow at that time. His upper endoscopy revealed esophageal mass partially obstructing the lumen. 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 The patient completed several cycles of chemotherapy and multiple sessions of radiation therapy and is scheduled for this evaluation at this time to assess the condition of his cancer and to plan further management. The patient has been on antiplatelet therapy because of recent cardiac event and he was not cleared by his wellness educator to have this procedure performed off his antiplatelet medications and, therefore, this exam today is intended to have a good look at that area and obtain pictures but not for the purpose of obtaining biopsies. Procedure: With the patient on his left lateral decubitus position and after informed consent and adequate sedation, I passed the Olympus-GIF H 190 video upper endoscope through the cricopharyngeus down the esophagus. The distal esophagus showed significant resolution of the abnormality that I previously described as a partially obstructing mass, and instead, what I see is a hiatal hernia with a short segment of Reynoso's esophagus with some slight nodularity and friability at the level of the rinku-GE junction with no obvious tumors or any restriction to the advancement of the endoscope. I advanced the endoscope through the hiatal hernia to the rest of the stomach and I obtained a retroflex view in the cardia which did not show any abnormalities. I obtained 3 pictures of the esophagitis in the forward view and one in the retroflex view in the cardia to demonstrate the findings I just described. The rinku-GE junction starts at around 36 cm from the incisors and extends to around 39 as previously described. The hiatal hernia measured at around 2 cm. There was no hesitation to the advancement of the endoscope in the distal esophageal segment and no strictures or significant resistance was noted. The endoscope was then passed into the stomach which was insufflated with air including the retroflex view in the cardia. Finally, the endoscope was passed through the pylorus into the duodenum. The stomach, pyloric channel, duodenal bulb, post bulbar area and descending duodenum appeared within normal limits. No biopsies were obtained as noted above. The patient tolerated the procedure well. Plan: I summarized the findings to the patient. He has an appointment in 3 days with his radiation oncologist which he would keep. I will discuss these findings with you as well.
== END 2018-05-19 09:41 | disposition home or self-care (01) ==
LOC: ORWHC2ENDO 06:46
DX: Z08 Encounter for follow-up examination after completed treatment for malignant neoplasm (principal); K22.70 Barrett's esophagus without dysplasia; K44.9 Diaphragmatic hernia without obstruction or gangrene; Z85.01 Personal history of malignant neoplasm of esophagus; I25.10 Atherosclerotic heart disease of native coronary artery without angina pectoris; I25.2 Old myocardial infarction; I10 Essential (primary) hypertension; E78.5 Hyperlipidemia, unspecified; G47.33 Obstructive sleep apnea (adult) (pediatric); E11.9 Type 2 diabetes mellitus without complications; Z95.5 Presence of coronary angioplasty implant and graft; Z92.3 Personal history of irradiation; Z92.21 Personal history of antineoplastic chemotherapy; Z87.19 Personal history of other diseases of the digestive system; Z79.02 Long term (current) use of antithrombotics/antiplatelets; Z79.82 Long term (current) use of aspirin; Z79.4 Long term (current) use of insulin; Z79.891 Long term (current) use of opiate analgesic; Z79.899 Other long term (current) drug therapy
CPT/HCPCS: 43235; J2001; J3010; J2704

== ENCOUNTER 2018-09-10 06:44 | Day surgery (SDC) | payer OTHER ==
[2018-09-04 14:24] VITALS: BMI 38.9
[~2018-09-10 06:44] MED LIST changes: -LIDOCAINE 1% 20 ML VIAL (10MG/ML) FOR IV START INTRADERMA PRN
[2018-09-10 07:16] LABS: Glucose,Whole Blood 107 mg/dL (75-99)
[2018-09-10 07:17] VITALS: TEMP 97.4
[2018-09-10] MEDS ORDERED: LIDOCAINE 1% INJ 10MG/ML (20 ML MDV) ONE (08:09)
[2018-09-10] MEDS ORDERED: PROPOFOL 10 MG/ML 20 ML VIAL IV ONE (08:09)
[2018-09-10 09:05] VITALS: RESP 16
[2018-09-10 09:20] VITALS: BP 128/91; PULSE 62
--- NOTE | 2018-09-10 22:07 | P.PCN ---
Date of Procedure: 09/10/18 Procedure(s) Performed: Procedure: Esophagogastroduodenoscopy Preoperative diagnosis: Dysphagia and history of adenocarcinoma of the esophagus status post prior chemotherapy and radiation completed in February 2018. Postoperative diagnosis: Hiatal hernia and Reynoso's esophagus with esophagitis but no obvious residual or recurrent tumor. Preparation and sedation: Were provided by anesthesia. Brief clinical history: The patient is 63-year-old male who was diagnosed with esophageal cancer in November 2017 that showed invasive adenocarcinoma on a background of Reynoso's esophagus with high-grade dysplasia on biopsy. The patient completed chemotherapy and radiation therapy and I performed an upper endoscopy 05/19/2018 and I noted possible complete resolution of his cancer. The patient has been on antiplatelet therapy because of recent cardiac event and his examination in May and today was performed while on his antiplatelet therapy. This evaluation today scheduled because of recurrence of dysphagia and he feels that the food intermittently gets hung up in the top of his throat. This is not happening with every bite and every meal. This evaluation is to assess for possible recurrence and to guide management. Procedure: With the patient on his left lateral decubitus position and after informed consent and adequate sedation, I passed the Olympus-GIF H 190 video upper endoscope through the cricopharyngeus down the esophagus. The distal esophagus showed a hiatal hernia with a short segment of Reynoso's esophagus with erythema, edema and friability and small isolated ulcerations at the level of the rinku-GE junction with no obvious tumors or any restriction to the advancem ent of the endoscope. I advanced the endoscope through the hiatal hernia to the rest of the stomach and I obtained a retroflex view in the cardia which did not show any abnormalities. I obtained pictures of the esophagitis in the forward view. The rinku-GE junction starts at around 36 cm from the incisors and extends to around 39 as previously described. The hiatal hernia measured at around 2 cm . There was no hesitation to the advancement of the endoscope in the distal esophageal segment and no strictures or significant resistance was noted. No evidence of residual or recurrent cancer. The endoscope was then passed into the stomach which was insufflated with air including the retroflex view in the cardia. Finally, the endoscope was passed through the pylorus into the duodenum. The stomach, pyloric channel, duodenal bulb, post bulbar area and descending duodenum appeared within normal limits. No biopsies were obtained as noted above. The patient tolerated the procedure well. Plan: The patient was reassured. He has been started on PP prior. Consider adding carafate suspenssion. Repeat EGD based on clinical course.
== END 2018-09-10 09:33 | disposition home or self-care (01) ==
LOC: ORWHC2ENDO 06:44
DX: K22.711 Barrett's esophagus with high grade dysplasia (principal); K20.9 Esophagitis, unspecified; K44.9 Diaphragmatic hernia without obstruction or gangrene; Z85.01 Personal history of malignant neoplasm of esophagus; Z92.21 Personal history of antineoplastic chemotherapy; Z92.3 Personal history of irradiation; I25.10 Atherosclerotic heart disease of native coronary artery without angina pectoris; I10 Essential (primary) hypertension; I25.2 Old myocardial infarction; G47.33 Obstructive sleep apnea (adult) (pediatric); Z99.89 Dependence on other enabling machines and devices; E11.9 Type 2 diabetes mellitus without complications; E66.01 Morbid (severe) obesity due to excess calories; Z68.38 Body mass index [BMI] 38.0-38.9, adult; Z95.5 Presence of coronary angioplasty implant and graft; Z79.4 Long term (current) use of insulin; Z79.899 Other long term (current) drug therapy
CPT/HCPCS: 43235; J2001; J2704

== ENCOUNTER → 2018-09-14 | Outpatient (CLI) | payer OTHER ==
--- NOTE | 2018-09-14 10:25 | XR ---
Right shoulder HISTORY: Chest pain, antineoplastic chemotherapy history 3 views of the right shoulder Small distal acromial spur may be present. Acromioclavicular joint arthropathy changes present. Align ment, bone mineralization, joint spaces are maintained. Right lung apex as visualized is normal. IMPRESSION: Correlate for possible impingement. No fracture or dislocation.
--- NOTE | 2018-09-14 11:18 | XR ---
Right leg HISTORY: Trauma one month prior, pain 2 views of the right leg on 4 images There is soft tissue swelling present. Bone mineralization, joint spaces are remarkable for medial co mpartment loss in the knee, and alignment is maintained. Soft tissue calcifications are likely vascul ar. Some degenerative changes are present at the intertarsal joints within the fluid. IMPRESSION: No fracture or dislocation. Osteoarthritis, correlate for edema, cellulitis.
== END | disposition home or self-care (01) ==
LOC: RADXRMAIN 09:54
PROVIDERS: ATTEND Radiology Radiation Oncology
DX: C15.5 Malignant neoplasm of lower third of esophagus (principal); R07.1 Chest pain on breathing; Z92.21 Personal history of antineoplastic chemotherapy

== ENCOUNTER → 2018-09-15 | Outpatient (CLI) | payer OTHER ==
--- NOTE | 2018-09-15 11:42 | XR ---
EXAMINATION TYPE: XR abdomen 2V DATE OF EXAM: 09/15/2018 COMPARISON: NONE HISTORY: Constipation TECHNIQUE: One view abdominal series FINDINGS: The osseous structures are intact. The bowel gas pattern is nonspecific. Calcifications in the pelvi s are likely vascular. Arthropathy of the hips. Soft tissue ossification seen in the right femoral re gion. Sclerotic changes involving the SI joint bilaterally. IMPRESSION: 1. Nonspecific abdomen with no obstruction and retained debris correlate for constipation.
[2018-09-15 11:46] LABS: HCT 48.5 % (39.0-53.0); HGB 15.7 gm/dL (13.0-17.5); MCH 33.8 pg (25.0-35.0); MCHC 32.4 g/dL (31.0-37.0); MCV 104.2 fL (80.0-100.0); Macrocytosis Moderate; Mean Platelet Volume 6.7; Platelet Count 306 k/uL (150-450); RBC 4.66 m/uL (4.30-5.90); RDW 15.2 % (11.5-15.5); WBC 5.9 k/uL (3.8-10.6)
--- NOTE | 2018-09-15 11:50 | XR ---
EXAM TYPE: LUMBAR SPINE X RAY SERIES COMPARISON: NONE HISTORY: Pain TECHNIQUE: 4 views are submitted. FINDINGS: Alignment is anatomic. The pedicles are intact. The transverse processes are intact. There is no s pondylolysis or spondylolisthesis. There is hypertrophic and degenerative change of the spine facet arthropathy. No compression deformities. IMPRESSION: 1. Multilevel degenerative disc disease and facet arthropathy.
[2018-09-15 11:57] LABS: Calcium 9.9 mg/dL (8.4-10.2); Potassium 5.4 mmol/L (3.5-5.1)
--- NOTE | 2018-09-15 12:14 | XR ---
EXAMINATION TYPE: XR Hip Complete RT DATE OF EXAM: 09/15/2018 COMPARISON: NONE HISTORY: Pain TECHNIQUE: 2 views submitted FINDINGS: There is soft tissue well-corticated ossifications near the region of the femoral neck. Arthropathy o f the hip joint. Pubic rami appear to be grossly intact. IMPRESSION: 1. There is a soft tissue ossifications which appear to be corticated near the region of the femoral neck which could been the basis of previous trauma. No definite acute displaced fracture as visualize d. Recommend follow-up CT scan.
--- NOTE | 2018-09-15 13:37 | CT ---
EXAMINATION TYPE: CT ChestAbdPelvis wo/w con DATE OF EXAM: 09/15/2018 COMPARISON: Prior PET/CT 04/18/2018 HISTORY: Malignant neoplasm of lower third of Esophagus CT DLP: 3836 mGycm Automated exposure control for dose reduction was used. CONTRAST: CT scan of the chest, abdomen and pelvis is performed with Oral Contrast and without and with IV Cont rast, patient injected with 80 mL of Isovue 300. FINDINGS: LUNGS: The lungs are remarkable for some minimal airspace disease in the right perihilar location, ax ial image 34. Some minimal basilar nodularity is present bilaterally, axial image 45, axial image 46 where there is pleural extension of possible subsegmental atelectatic change or scarring There is no pleural effusion or pneumothorax seen. The tracheobronchial tree is patent. MEDIASTINUM: There are no greater than 1 cm hilar or mediastinal lymph nodes. Minimal pericardial eff usion is seen. AORTA: No significant abnormality is seen. OTHER: There are dense coronary artery calcifications present, minimal esophageal wall thickening is indeterminate distally LIVER/GB: There is enlarged and shows low attenuation possibly due to hepatic steatosis. PANCREAS: No significant abnormality is seen. SPLEEN: No significant abnormality is seen. ADRENALS: No significant abnormality is seen. KIDNEYS: No significant abnormality is seen. REPRODUCTIVE ORGANS: Prostate shows some associated calcification is somewhat enlarged BOWEL: No significant abnormality is seen. FREE AIR: No Free Air visible. ASCITES: None seen. RETROPERITONEAL ADENOPATHY: No retroperitoneal adenopathy is seen. LYMPH NODES: No greater than 1 cm abdominal or pelvic lymph nodes are appreciated. URINARY BLADDER: Thickening of the urinary bladder especially towards the bases noted could be relat ed to chronic outlet obstruction, difficult to exclude a mucosal abnormality PELVIC ADENOPATHY: None visualized. OSSEOUS STRUCTURES: No significant abnormality is seen. IMPRESSION: Persistent esophageal thickening is noted distally. Hepatomegaly, possible hepatic steato sis. Indeterminate foci of increased density within the lungs, follow-up suggested. Additional findin gs above.
[2018-09-15 18:57] LABS: Hemoglobin A1C 8.8 % (4.0-6.0)
== END | disposition home or self-care (01) ==
LOC: RADCTMAIN 09:28
PROVIDERS: ATTEND Radiology Radiation Oncology
DX: M51.36 Other intervertebral disc degeneration, lumbar region (principal); M46.96 Unspecified inflammatory spondylopathy, lumbar region; K22.9 Disease of esophagus, unspecified; R16.0 Hepatomegaly, not elsewhere classified; I31.3 Pericardial effusion (noninflammatory); I25.10 Atherosclerotic heart disease of native coronary artery without angina pectoris; R07.1 Chest pain on breathing; K22.70 Barrett's esophagus without dysplasia; Z92.21 Personal history of antineoplastic chemotherapy
CPT/HCPCS: 80048; 85027; 83036; 72110; 73502; 74019; 71270; 74178; 36415; Q9967

== ENCOUNTER 2018-10-09 06:16 | Emergency (ER) | payer OTHER ==
[2018-10-09] MEDS ORDERED: SODIUM CHLORIDE 0.9% 1,000 ML IV STA (06:38)
[2018-10-09] MEDS ORDERED: HYDROmorphone 1 MG/ML 1 ML SYRINGE IVP STA (06:38)
--- NOTE | 2018-10-09 06:42 | ED ---
General Adult HPI - General Chief complaint: Urogenital Stated complaint: Groin pain Time Seen by Provider: 10/09/18 06:28 Source: patient Mode of arrival: EMS Limitations: no limitations - History of Present Illness Initial comments: Michael is a 63-year-old gentleman who presents to the emergency department today via private vehicle for evaluation of pelvic pain, burning pain down both legs and weakness. Patient reports that mid August he had a mechanical fall backward since that time he said progressively worsening back pain. He was initially prescribed Percocet but has not been taking it for the past few days. Patient reports that he is followed with his primary care as well as orthopedic surgery and is scheduled for an outpatient MRI. Patient reports that over the past couple of weeks she's been developing worsening constipation which initially he thought was due to the pain medications however despite not being on it for a number of days he still required to take MiraLAX daily and is having difficulty with bowel movements. Patient also states that over the past week she's noticed some difficulty with urination which she has never experienced before. Patient states at times he strains for greater than 10 minutes and cannot empty his bladder. He states this morning he has not been able to urinate at all. In addition patient also reports discomfort in his perineum which he has difficulty describing. Patient reports that symptoms have been present for a while but it progressively worsened and this morning were unbearable. Patient reports when he tried to get out of bed this morning he was so weak he required assistance by his who took him directly to the car and brought him to the emergency department. Upon arrival in the emergency department he required a 2 person assist to stand and get in the wheelchair and to transition from wheelchair to bed. Prior to today patient has been ambulatory without difficulty. - Related Data Home Medications Medication Instructions Recorded Confirmed Colchicine 0.6 mg PO DAILY PRN 04/19/16 09/10/18 INSULIN ASPART (NovoLOG) [NovoLOG 50 unit SQ AC-TID 04/19/16 09/10/18 (formulary)] Insulin Glargine,Hum.rec.anlog 60 unit SQ HS 04/19/16 09/10/18 [Lantus Solostar] oxyCODONE-APAP 10-325MG [Percocet 1 tab PO BID PRN 04/19/16 09/10/18 10-325 mg] Allopurinol [Zyloprim] 300 mg PO DAILY 05/04/17 09/10/18 Aspirin EC [Ecotrin Low Dose] 81 mg PO DAILY 05/04/17 09/10/18 Metoprolol Succinate (ER) [Toprol 50 mg PO DAILY 05/04/17 09/10/18 XL] amLODIPine [Norvasc] 5 mg PO DAILY 05/15/18 09/10/18 Furosemide [Lasix] 20 mg PO DAILY 09/04/18 09/10/18 Previous Rx's Medication Instructions Recorded Nitroglycerin Sl Tabs [Nitrostat] 0.4 mg SUBLINGUAL Q5M PRN #25 tab 04/22/16 Ticagrelor [Brilinta] 90 mg PO BID #60 tab 05/07/17 Allergies Allergy/AdvReac Type Severity Reaction Status Date / Time No Known Allergies Allergy Verified 10/09/18 07:34 Review of Systems ROS Statement: Those systems with pertinent positive or pertinent negative responses have been documented in the HPI. ROS Other: All systems not noted in ROS Statement are negative. Past Medical History Past Medical History: Coronary Artery Disease (CAD), Cancer, Diabetes Mellitus, Hyperlipidemia, Hypertension, Myocardial Infarction ([place]), Renal Disease, Sleep Apnea/CPAP/BIPAP Additional Past Medical History / Comment(s): [place] 2016 AND 2017., VARICOSE VEINS, HX OF RIGHT LEG INJURY (TREE FELL ON HIS LEG)- UNABLE TO WALK DISTANCE- leg swells., no cpap used, esophageal cancer, gout, decreased kidney function Last Myocardial Infarction Date:: 05/2017 History of Any Multi-Drug Resistant Organisms: None Reported Past Surgical History: Heart Catheterization With Stent, Orthopedic Surgery Additional Past Surgical History / Comment(s): right great toe bunionectomy; right leg Injury- 2 tubes inserted for drainage (tree fell on right leg), 3 car diac stents(2016 & 05/2017) Past Anesthesia/Blood Transfusion Reactions: Motion Sickness Date of Last Stent Placement:: 05/2017 Past Psychological History: No Psychological Hx Reported Smoking Status: Never smoker Past Alcohol Use History: Rare Past Drug Use History: None Reported - Past Family History Father Family Medical History: Coronary Artery Disease (CAD), Diabetes Mellitus Additional Family Medical History / Comment(s): " of a massive heart attack but he was an alcoholic and he smoked" Mother Family Medical History: No Reported History General Exam - General Exam Comments Initial Comments: GENERAL: Stressed, appears uncomfortable, holding his abdomen HENT: Normocephalic, Atraumatic. EYES: The sclera were anicteric and conjunctiva were pink and moist. Extraocular movements were intact and pupils were equal round and reactive to light. Eyelids were unremarkable. PULMONARY: Tachypnea secondary to pain Clear lung sounds CARDIOVASCULAR: There is a regular rate and rhythm without any murmurs gallops or rubs Warm and well perfused lower extremities with cap refill of less < 3 seconds Palpable DP and PT pulses bilaterally ABDOMEN: Soft and nontender with normal bowel sounds. No pulsatile mass Palpable bladder SKIN: Skin is clear with no lesions or rashes and otherwise unremarkable. NEUROLOGIC: Patient is alert and oriented x3. Cranial nerves II through XII are grossly intact. Hyperesthesia the bilateral lower extremities Hyperesthesia in the perineum Upgoing Babinski's reflex noted in the left however this may have been due to pain rather than true reflux Patient unable to sit upright for patellar reflexes MUSCULOSKELETAL: Decreased strength in bilateral lower extremities, LYMPHATICS: No significant lymphadenopathy is noted PSYCHIATRIC: Normal psychiatric evaluation Limitations: no limitations Course Vital Signs 10/09/18 10/09/18 10/09/18 06:22 06:37 07:34 Temperature 98.4 F 97.4 F L Pulse Rate 86 81 66 Respiratory 18 24 18 Rate Blood Pressure 163/129 160/100 154/99 O2 Sat by Pulse 98 98 100 Oximetry EKG Findings - EKG Comments: EKG Findings:: EKG was obtained at 6:37 AM, rate is 80 rhythm is sinus with PACs there is normal axis, there are normal intervals, NV 170, care is 100, QTC 452 there is no acute ST elevations or depressions no evidence of acute ischemia or infarction Medical Decision Making - Medical Decision Making The patient was seen and evaluated upon arrival to the emergency department, patient is in acute distress with abdominal and groin discomfort and paresthesias in the bilateral lower extremities which is been progressively worsening since a fall last month Given the patient's acute distress and discomfort there was concern for possible dissection however review of CT from last month reveals no aortic pathology, patient has warm and well perfused 6 remedies with pulses present and equal bilaterally Upon further history the patient did have a fall last month is having progressively worsening paresthesias has developed constipation and urinary retention, the bladder is palpable on exam and on bedside bladder scan has greater than 1 L of Mariano catheter was placed 1800 mL of urine were drained and the urinary catheter was clamped Review of patient's imaging over the past month revealed no acute pathology however given the history of the fall the progressively worsening paresthesias the development of constipation the development of urinary retention, subjective weakness in the legs I do have a high suspicion for possible cauda equina. At this time I do not feel the patient would benefit from repeat CT imaging and requires a stat MRI. I discussed with the patient was agreeable for plan for transfer to outside facility. She care was discussed with ER provider Dr. Smith at [facility] who accepts the transfer. Patient was given 1 mg of IV Dilaudid with no improvement in his discomfort 100 g of fentanyl IV was given with minimal improvement Decadron was given for any possible inflammation Upon reevaluation patient remains tearful and distressed she is diaphoretic. Patient reports he cannot feel his left leg. His is rubbing his left leg the patient reports he cannot feel it. An additional 500 mL of urine were drained in the Mariano catheter again the c atheter was clamped, patient had some improvement in symptoms with further urine drainage. - Lab Data Result diagrams: 10/09/18 06:45 10/09/18 06:45 Lab Results 10/09/18 10/09/18 10/09/18 Range/Units 06:45 06:45 06:47 WBC 6.1 (3.8-10.6) k/uL RBC 5.09 (4.30-5.90) m/uL Hgb 16.3 (13.0-17.5) gm/dL Hct 50.4 (39.0-53.0) % MCV 99.1 D (80.0-100.0) fL MCH 32.1 (25.0-35.0) pg MCHC 32.4 (31.0-37.0) g/dL RDW 14.8 (11.5-15.5) % Plt Count 252 (150-450) k/uL Neutrophils % 69 % Lymphocytes % 16 % Monocytes % 9 % Eosinophils % 2 % Basophils % 1 % Neutrophils # 4.2 (1.3-7.7) k/uL Lymphocytes # 1.0 (1.0-4.8) k/uL Monocytes # 0.5 (0-1.0) k/uL Eosinophils # 0.1 (0-0.7) k/uL Basophils # 0.0 (0-0.2) k/uL Sodium 137 (137-145) mmol/L Potassium 5.1 (3.5-5.1) mmol/L Chloride 106 (98-107) mmol/L Carbon Dioxide 17 L (22-30) mmol/L Anion Gap 14 mmol/L BUN 26 H (9-20) mg/dL Creatinine 1.33 H (0.66-1.25) mg/dL Est GFR (CKD-EPI)AfAm 67 (>60 ml/min/1.73 sqM) Est GFR (CKD-EPI)NonAf 58 (>60 ml/min/1.73 sqM) Glucose 163 H (74-99) mg/dL POC Glucose (mg/dL) 167 H (75-99) mg/dL POC Glu English Drawer ID Celeste Alvarado Calcium 10.4 H (8.4-10.2) mg/dL Total Bilirubin 0.6 (0.2-1.3) mg/dL AST 50 (17-59) U/L ALT 54 (21-72) U/L Alkaline Phosphatase 121 (38-126) U/L Creatine Kinase 546 H (55-170) U/L Total Protein 7.7 (6.3-8.2) g/dL Albumin 4.3 (3.5-5.0) g/dL Urine Color Urine Appearance (Clear) Urine pH (5.0-8.0) Ur Specific [place] (1.001-1.035) Urine Protein (Negative) Urine Glucose (UA) (Negative) Urine Ketones (Negative) Urine Blood (Negative) Urine Nitrite (Negative) Urine Bilirubin (Negative) Urine Urobilinogen (<2.0) mg/dL Ur Leukocyte Esterase (Negative) Urine RBC (0-5) /hpf Urine WBC (0-5) /hpf Urine Mucus (None) /hpf 10/09/18 Range/Units 07:01 WBC (3.8-10.6) k/uL RBC (4.30-5.90) m/uL Hgb (13.0-17.5) gm/dL Hct (39.0-53.0) % MCV (80.0-100.0) fL MCH (25.0-35.0) pg MCHC (31.0-37.0) g/dL RDW (11.5-15.5) % Plt Count (150-450) k/uL Neutrophils % % Lymphocytes % % Monocytes % % Eosinophils % % Basophils % % Neutrophils # (1.3-7.7) k/uL Lymphocytes # (1.0-4.8) k/uL Monocytes # (0-1.0) k/uL Eosinophils # (0-0.7) k/uL Basophils # (0-0.2) k/uL Sodium (137-145) mmol/L Potassium (3.5-5.1) mmol/L Chloride (98-107) mmol/L Carbon Dioxide (22-30) mmol/L Anion Gap mmol/L BUN (9-20) mg/dL Creatinine (0.66-1.25) mg/dL Est GFR (CKD-EPI)AfAm (>60 ml/min/1.73 sqM) Est GFR (CKD-EPI)NonAf (>60 ml/min/1.73 sqM) Glucose (74-99) mg/dL POC Glucose (mg/dL) (75-99) mg/dL POC Glu English Drawer ID Calcium (8.4-10.2) mg/dL Total Bilirubin (0.2-1.3) mg/dL AST (17-59) U/L ALT (21-72) U/L Alkaline Phosphatase (38-126) U/L Creatine Kinase (55-170) U/L Total Protein (6.3-8.2) g/dL Albumin (3.5-5.0) g/dL Urine Color Light Yellow Urine Appearance Clear (Clear) Urine pH 6.5 (5.0-8.0) Ur Specific [place] 1.008 (1.001-1.035) Urine Protein 1+ H (Negative) Urine Glucose (UA) 1+ H (Negative) Urine Ketones Negative (Negative) Urine Blood Trace H (Negative) Urine Nitrite Negative (Negative) Urine Bilirubin Negative (Negative) Urine Urobilinogen <2.0 (<2.0) mg/dL Ur Leukocyte Esterase Negative (Negative) Urine RBC <1 (0-5) /hpf Urine WBC <1 (0-5) /hpf Urine Mucus Rare H (None) /hpf Critical Care Time Critical Care Time: Yes Total Critical Care Time: 30 Disposition Clinical Impression: Back pain, Acute urinary retention, Paresthesia of bilateral legs Disposition: OTHER INSTITUTION NOT DEFINED Condition: Serious Is patient prescribed a controlled substance at d/c from ED?: No Referrals: Best Lee DO [Primary Care Provider] - 1-2 days - Out of Hospital Transfer - Req. Specs Out of Hospital Transfer - Requested Specifics: Other Emergency [facility] ([facility]
[2018-10-09 06:49] LABS: Glucose,Whole Blood 167 mg/dL (75-99)
[2018-10-09 06:56] LABS: Basophils % (A) 1 %; Eosinophils # (A) 0.1 k/uL (0-0.7); Eosinophils % (A) 2 %; HCT 50.4 % (39.0-53.0); HGB 16.3 gm/dL (13.0-17.5); Lymphocytes % (A) 16 %; MCH 32.1 pg (25.0-35.0); MCHC 32.4 g/dL (31.0-37.0); Mean Platelet Volume 6.7; Monocytes # (A) 0.5 k/uL (0-1.0); Monocytes % (A) 9 %; Neutrophils # (A) 4.2 k/uL (1.3-7.7); Neutrophils % (A) 69 %; Platelet Count 252 k/uL (150-450); RBC 5.09 m/uL (4.30-5.90); RDW 14.8 % (11.5-15.5); WBC 6.1 k/uL (3.8-10.6)
[2018-10-09 07:07] LABS: Albumin 4.3 g/dL (3.5-5.0); Calcium 10.4 mg/dL (8.4-10.2); Potassium 5.1 mmol/L (3.5-5.1); Total Bilirubin 0.6 mg/dL (0.2-1.3); Total Protein 7.7 g/dL (6.3-8.2)
[2018-10-09 07:16] LABS: Appearance,Urine Clear (Clear); Bilirubin,Urine Negative (Negative); Blood,Urine Trace (Negative); Color,Urine Light Yellow; Glucose,Urine (UA) 1+ (Negative); Ketones,Urine Negative (Negative); Leukocyte Esterase,Urine Negative (Negative); Mucus,Urine Rare /hpf; Nitrite,Urine Negative (Negative); PH, Urine 6.5 (5.0-8.0); Protein,Urine 1+ (Negative); RBC,Urine <1 /hpf (0-5); Specific Gravity,Urine 1.008 (1.001-1.035); Urobilinogen,Urine <2.0 mg/dL (<2.0)
[2018-10-09 07:20] LABS: MCV 99.1 fL (80.0-100.0)
[2018-10-09] MEDS ORDERED: fentaNYL (PF) 50 MCG/ML 2 ML AMP IV STA (07:29)
[2018-10-09] MEDS ORDERED: DEXAMETHASONE SOD PHOSPHATE 10 MG/ML 1 ML VIAL IV STA (07:32)
[2018-10-09 07:35] VITALS: TEMP 97.4
[2018-10-09 07:57] VITALS: BP 170/90; PULSE 78; RESP 20
== END 2018-10-09 08:05 | disposition other institution (70) ==
LOC: EC 06:16
DX: M54.9 Dorsalgia, unspecified (principal); R33.9 Retention of urine, unspecified; R20.2 Paresthesia of skin; R10.2 Pelvic and perineal pain; I25.10 Atherosclerotic heart disease of native coronary artery without angina pectoris; E11.9 Type 2 diabetes mellitus without complications; E78.5 Hyperlipidemia, unspecified; I10 Essential (primary) hypertension; I25.2 Old myocardial infarction; M10.9 Gout, unspecified; Z85.01 Personal history of malignant neoplasm of esophagus; Z79.4 Long term (current) use of insulin; Z79.82 Long term (current) use of aspirin; Z79.899 Other long term (current) drug therapy; Z95.5 Presence of coronary angioplasty implant and graft
CPT/HCPCS: 51798; 36415; 93005; 80053; 82550; 85025; 81001; 99291; 51702; 96374; 96375 ×2; 96361; J1100; J3010; J1170